=== PATIENT | female | born 1990 | race Caucasian/White ===

== ENCOUNTER 2019-10-03 09:03 | Outpatient (REF) | payer BC, SELFPAY ==
--- NOTE | 2019-10-03 08:15 | PAPFT_PTH ---
PATIENT: Alma Delia Loomis LOC: [facility] U#:[id number] AGE/SX: 29/F ROOM: RE10/03/[address]: Alma Delia Mejia : 1990 BED: DIS: 10/03/2019 SPEC #: [id number] RECD: 10/04/19 13:01 STATUS: HUMZA REQ #: [id number] LUIS: 10/03/19 08:[address]: Alma Delia Mejia DEPT: [facility] Cytology RECD BY: Marnie Villa Tissues: 1 - CX/ENDOCX FOR PAP SMEARS Procedures: PAP THIN PREP/[facility] Screening HPV DNA PROBE Comments: [id number]
== END 2019-10-03 09:23 ==
LOC: NCHCN 09:03
PROVIDERS: PCP Family Medicine; Visit Provider Family Medicine
DX: Z12.4 Encounter for screening for malignant neoplasm of cervix (principal); Z11.51 Encounter for screening for human papillomavirus (HPV)
CPT/HCPCS: 88142; 87624

== ENCOUNTER 2020-08-01 16:13 | Outpatient (REF) | payer MEDICAID, SELFPAY ==
[2020-08-01 20:46] LABS: ALT 21 U/L (14-59); AST 13 U/L (15-37); Albumin 3.9 g/dL (3.4-5.0); Alkaline Phosphatase 102 U/L (46-116); BUN 9 mg/dL (7-18); Bilirubin, Total 0.2 mg/dL (0.2-1.0); CREATININE 0.8 mg/dL (0.55-1.02); Calcium 9.5 mg/dL (8.5-10.1); Calculated LDL 109 mg/dL (<100); Chloride 101 mmol/L (98-107); Cholesterol 196 mg/dL (<200); Glucose 88 mg/dL (74-106); HDL Cholesterol 68 mg/dL (40-60); Potassium 4.2 mmol/L (3.5-5.1); Sodium 134 mmol/L (136-145); Total Protein 7.6 g/dL (6.4-8.2); Triglyceride 97 mg/dL (<150)
== END 2020-08-01 16:14 | disposition home or self-care (01) ==
LOC: NCHCN 16:13
PROVIDERS: PCP Family Medicine; Visit Provider Registered Nurse
DX: Z13.220 Encounter for screening for lipoid disorders (principal); Z13.228 Encounter for screening for other metabolic disorders; Z00.00 Encounter for general adult medical examination without abnormal findings
CPT/HCPCS: 80053; 80061

== ENCOUNTER 2021-10-02 18:27 | Outpatient (REF) | payer MEDICAID, SELFPAY ==
[2021-10-04 01:52] LABS: COVID-19 RT-PCR UVMMC Result Negative (Negative)
== END 2021-10-02 18:28 | disposition home or self-care (01) ==
LOC: NCHCN 18:27
PROVIDERS: PCP Family Medicine; Visit Provider Family Medicine
DX: Z20.822 Contact with and (suspected) exposure to COVID-19 (principal); J06.9 Acute upper respiratory infection, unspecified
CPT/HCPCS: U0003

== ENCOUNTER 2024-01-05 20:03 | Outpatient (REF) | payer SELFPAY ==
--- OUTSIDE RECORDS SUMMARY | 2024-01-05 20:08 | XMS_ITS | Encounter Summary ---
Author Organization [facility] Address [address] [place] [address] Care Team Providers Care Junior Network Administrator Name Role Phone Alma Delia Mejia MD Primary Care Provider [phone] Reason for Referral * Consult (Urgent) - Authorization Not Required Specialty Diagnoses / Procedures Referred By Trang rizzo Referred To Contact Orthopedic Surgery Diagnoses Dislocation of left patella, initial encounter Jaspreet Rosen MD [address] [place] [address] Phone: tel: fax: [facility] [address], [address] [place] [address] Phone: tel: fax: Referral ID Status Reason Start Date Expiration Date Visits Requested Visits Authorized [id number] Authorization Not Required Specialty Services Required 4 1 1 Question Answer Reason for Request: patellar dislocation Reason for Visit * Reason Comments Knee Pain Brought in by EMS wi th L knee possible dislocation. Happened while turning in upright position. 100 mcg fentanyl en route. Hx knee surgeries. Encounter Details Date Type Department Care Team (Late st Contact Info) Description 08/02/2023 15:48 EDT - 08/02/2023 18:55 EDT Emergency [facility] Emergency Department [address] [place], [place] [id number] Jaspreet Rosen MD [address] [place] [address] [phone] Dislocation of left patella, initial encounter (Primary Dx) Discharge Disposition: Home or Self Care Social History Tobacco Use Types Packs/Day Years Used Date Smoking Tobacco: Never Smokeless Tobacco: Never Tobacco Cessation:Counseling Given: Not Answered Alcohol Use Standard Drinks/Week Comments Not Currently 0 (1 standard drink = 0.6 oz pur e alcohol) Interpersonal Safety Answer Date Record ed Physically Hurt Never 09/16/2019 Verbally Threaten Not on file 09/16/2019 Comments No Sex and Gender Information Value Date Recorded Sex Assigned at Not on file Legal Sex Female 18:37 EST Gender Identity Female 01/05/2019 9:42 EST Sexual Orientation Not on file documented as of this encounter Last Filed Vital Signs Vital Sign Reading Time Taken Comments Blood Pressure 149/96 08/02/2023 1841 EDT Pulse - - Temperature 36.5 ??C (97.7 ??F) 08/02/2023 1600 EDT Respiratory Rate 14 08/02/2023 1841 EDT Oxygen Saturation 100% 08/02/2023 1841 EDT Inhaled Oxygen Concentration - - Weight - - Height - - Body Mass Index - - documented in this encounter Discharge Instructions * Discharge Instructions* Jaspreet Rosen MD - 08/02/2023 18:17 EDT [facility] Emergency Department Discharge Instructions Diagnosis: Knee Dislocation Instructions / expected course of illness: You are at risk for recurrent dislocation and I would recommend immobilizing the knee for the next couple of days until you follow-up with orthopedic surgery. You can take the brace off to shower and bathe I would ice the knee through the splint for 20 minutes at a time. For pain you can take: Ibuprofen (also known as advil or motrin) 400-600mg Acetaminophen (known as Tylenol) 650mg You can alternate these every 3 hours or take them together every 6 hours. Follow up: With your primary care provider as well as orthopedic surgery. I have placed a referral to orthopedics and they should call you to schedule a follow- up appointment Return Precautions: If you have significant worsening of your symptoms especially significant uncontrolled pain, or other symptoms that are particularly concerning to you please return to the emergency room for reevaluation. * Attachments The following attachments cannot be sent through Care Everywhere. * Kneecap Dislocation (Hebrew) documented in this encounter Medications at Time of Discharge albuterol sulfate 90 mcg/actuation aero powdr breath act w/sensor Cholecalciferol, Vitamin D3, 25 mcg (1,000 unit) capsule citalopram (CELEXA) 40 mg tablet Take 1 Tab by mouth daily. 30 Tab 1 12/24/2019 gabapentin (NEURONTIN) 300 mg capsule TAKE 1 CAPSULE BY MOUTH THREE TIMES DAILY 90 Cap 10/01/2019 ibuprofen (MOTRIN) 200 mg tablet Take 2 Tablets by mouth as needed. lamoTRIgine (LAMICTAL) 100 mg tablet 1 orally in the afternoon lamoTRIgine (LAMICTAL) 200 mg tablet TAKE 1 TABLET BY MOUTH EVERY DAY 30 Tab 1 09/17/2019 MEDICAL MARIJUANA minimal effective amount inhaled every 2 hours oxybutynin (DITROPAN-XL) 10 mg CR tablet Take 1 Tablet by mouth daily. 07/08/2020 QUEtiapine (SEROQUEL) 25 mg tablet 1 tab(s) orally at night as needed TRI-SPRINTEC, 28, 0.18/0.215/0.25 mg-35 mcg (28) tablet Take 1 Tablet by mouth daily. 07/02/2020 documented as of this encounter Discharge Disposition Disposition Code Departure Means Destination Comment s Home or Self Longterm documented in this encounter Progress Notes * Brea Levy, RT - 08/02/2023 1707 EDT Respiratory Conscious sedation The intubation box was made available at the bedside. The manual resuscitator with appropriate sizemask was hooked up to O2 and available for use. Supplemental O2 via O2 Device: None, , , was provided. SpO2 was noted to be pre 98, during 97 and post 98 procedure. EtCO2 was monitored during procedure. Procedure went well and pt is alert and oriented. BREA LEVY, RT 08/02/23 BREA LEVY, RT 08/02/23 documented in this encounter ED Notes * Roxy Álvarez RN - 08/02/2023 1854 EDT Pt able to weight bear on affected extremity to transfer from bed to wheelchair. Tolerating well. Brace in place. * Jaspreet Rosen MD - 08/02/2023 1548 EDTAssociated Order(s): Joint Disl - LE; Sedation Emergency Department Visit Medical Decision Making Imaging (independent interpretation) of the X-ray: On my interpretation postreduction x-ray shows adequate reduction Medical Decision Making 33-year-old female presents for evaluation of what seems to be a patellar dislocation on initial arrival. Complaining of significant ongoing pain. Milligram hydromorphone ordered as well as ketorolacand Tylenol. Given failed attempted reduction in the field as well as previous surgical history will at obtain x-rays before any further attempts at reduction. 3:59 PM Update: X-ray confirming lateral patellar dislocation. Attempted reduction after milligram of hydromorphone was unsuccessful. Procedural sedation was performed as detailed below with good reduction clinically. Post reduction x-rays read as unsuccessful and so case was discussed with orthopedics who will follow-up as an outpatient. Personally, I feel quite strongly that there is adequate reduction of the patella. She remains neurovascularly intact. She feels significantly improved. She will be discharged with a knee immobilizer Problems Addressed: Dislocation of left patella, initial encounter: complicated acute illness or injury Amount and/or Complexity of Data Reviewed Radiology: ordered. Risk Prescription drug management. Final diagnoses: Dislocation of left patella, initial encounter Disposition: Discharged Chief complaint: Patellar dislocation HPI Alma Delia Loomis is a 33 y.o. female with history of previous knee surgeries with Dr. Sumner on the left who presents to the ED for knee pain. Was twisting while standing up and felt her knee pop and give out. Lowered herself to the ground. EMS was called and noted a presumed patellar dislocation. They gave 100 mcg of fentanyl and attemptedreduction but were unsuccessful. Here in the emergency department patient continues to note significant pain in the left knee. No numbness or tingling in the foot or ankle. Does not believe she has ever had a patellar dislocation before. No other injuries Patient's pertinent PMH, FH, SH were reviewed and edited as necessary. Nursing notes reviewed. A medical screening exam was performed. Physical Exam BP (!) 149/96 Temp 36.5 ??C (97.7 ??F) (Oral) Resp 14 SpO2 100% Physical Exam Vitals and nursing note reviewed. Constitutional: General: She is not in acute distress. Appearance: She is well-developed. HENT: Head: Normocephalic and atraumatic. Neck: Trachea: No tracheal deviation. Cardiovascular: Rate and Rhythm: Normal rate. Pulmonary: Effort: Pulmonary effort is normal. No respiratory distress. Abdominal: General: There is no distension. Musculoskeletal: General: Normal range of motion. Cervical back: Normal range of motion. Comments: Visible and palpable dislocation of the patella laterally. No significant overlying laceration or abrasion. No erythema. Skin: General: Skin is warm and dry. Findings: No rash. Neurological: Mental Status: She is alert and oriented to person, place, and time. Motor: No abnormal muscle tone. Procedures Joint Disl - LE Performed by: Jaspreet Rosen MD Authorized by: Jaspreet Rosen MD Consent: Consent obtained: Verbal Consent given by: Patient Risks discussed: Fracture, nerve damage, restricted joint movement, irreducible dislocation, recurrent dislocation and vascular damage Alternatives discussed: No treatment, delayed treatment, alternative treatment, referral and immobilization [place] protocol: Procedure explained and questions answered to patient or proxy's satisfaction: yes Relevant documents present and verified: yes Test results available: yes Imaging studies available: yes Required blood products, implants, devices, and special equipment available: yes Site/side marked: yes Immediately prior to procedure, a time out was called: yes Patient identity confirmed: Verbally with patient Location: Location: Knee Knee injury location: L knee Knee dislocation type: patellar Pre-procedure details: Distal perfusion: normal Range of motion: reduced Sedation: Sedation type: Moderate sedation Anesthesia: Anesthesia method: None Procedure details: Manipulation performed: yes Knee reduction method: Direct traction Reduction successful: yes Reduction confirmed with imaging: yes Immobilization: Brace Post-procedure details: Neurological function: normal Distal perfusion: normal Range of motion: improved Procedure completion: Tolerated well, no immediate complications Sedation Performed by: Jaspreet Rosen MD Authorized by: Jaspreet Rosen MD Consent: Consent obtained: Written Consent given by: Patient Risks discussed: Allergic reaction, prolonged hypoxia resulting in organ damage, prolonged sedationnecessitating reversal, inadequate sedation, nausea, vomiting and respiratory compromise necessitating ventilatory assistance and intubation Alternatives discussed: Analgesia without sedation [place] protocol: Procedure explained and questions answered to patient or proxy's satisfaction: yes Relevant documents present and verified: yes Imaging studies available: yes Immediately prior to procedure a time out was called: yes Patient identity confirmation method: Verbally with patient Indications: Procedure performed: Dislocation reduction Procedure necessitating sedation performed by: Different physician Intended level of sedation: Deep Deep Sedation: This sedation was complicated by an emergent condition for which a delay in treatment would lead to a significant increase in threat to life or limb. Pre-sedation assessment: ASA classification: class 1 - normal, healthy patient Neck mobility: normal Mouth openin or more finger widths Mallampati score: I - soft palate, uvula, fauces, pillars visible Pre-sedation assessments completed and reviewed: airway patency, anesthesia/sedation history, cardiovascular function, hydration status, mental status, nausea/vomiting, pain level, respiratory function and temperature History of difficult intubation: no Immediate pre-procedure details: Reviewed: vital signs, relevant labs/tests and NPO status Verified: bag valve mask available, emergency equipment available, intubation equipment available, oxygen available and suction available Procedure details (see MAR for exact dosages): Preoxygenation: Nasal cannula Sedation: Propofol Analgesia: Fentanyl Intra-procedure monitoring: Blood pressure monitoring, continuous capnometry, case monitor, continuous pulse oximetry, frequent LOC assessments and frequent vital sign checks Intra-procedure events: none Intra-procedure management: Airway repositioning Post-procedure details: Attendance: Constant attendance by certified staff until patient recovered Recovery: Patient returned to pre-procedure baseline Estimated blood loss (see I/O flowsheets): no Post-sedation assessments completed and reviewed: cardiovascular function, mental status, nausea/vomiting and respiratory function Patient tolerance: Tolerated well, no immediate complications documented in this encounter Plan of Treatment Scheduled Referrals Name Type Priority Associated Diagnoses Order Schedule AMB CONS/FOLLOW [place]ED[place] [facility] [place] Urgent Dislocation of left patella, initial encounter Expected: 08/04/2023 (Approximate), Expires: 08/01/2024 documented as of this encounter Procedures Procedure Name Priority Date/Time Associated Diagnosis Comments XR KNEE LEFT 4 OR MORE VIEWS STAT 08/02/2023 17:05 EDT XR KNEE LEFT 1-2 VIEWS STAT 08/02/2023 16:12 EDT ED ORTHOPAEDIC INJURY TREATMENT - LOWER EXTREMITY Routine 08/02/2023 15:48 EDT ED ORTHOPAEDIC INJURY TREATMENT - LOWER EXTREMITY Routine 08/02/2023 15:48 EDT ED SEDATION PROCEDURE Routine 08/02/2023 15:48 EDT documented in this encounter Results * XR KNEE LEFT 4 OR MORE VIEWS (08/02/2023 17:05 EDT) Anatomical Region Laterality Modality Lower Extremities Left Computed Radio graphy 08/02/2023 16:5 5 EDT Impressions 08/02/2023 17:31 EDT Unsuccessful reduction. THIS DOCUMENT HAS BEEN ELECTRONICALLY SIGNED BY TIANA FERNANDEZ MD FOR ANY QUESTIONS OR CONCERNS REGARDING THIS REPORT PLEASE CALL [facility] AT [phone] Narrative 08/02/2023 17:31 EDT PROCEDURE INFORMATION: Exam: XR Left Knee Exam date and time: 08/02/2023 4:55 PM Age: 33 years old Clinical indication: Injury or trauma; Other: Post reduction; Dislocation; Patella or knee; Left TECHNIQUE: Imaging protocol: Radiologic exam of the left knee. Views: 4 or more views. Total images: 4 COMPARISON: CR XR KNEE LEFT 1-2 VIEWS 08/02/2023 4:02 PM FINDINGS: Bones/joints: Persistent lateral patellar subluxation/dislocation. Minimal knee effusion. No definite fracture. Soft tissues: Unremarkable. Procedure Note Tiana Fernandez MD - 08/02/2023 PROCEDURE INFORMATION: Exam: XR Left Knee Exam date and time: 08/02/2023 4:55 PM Age: 33 years old Clinical indication: Injury or trauma; Other: Post reduction; Dislocation; Patella or knee; Left TECHNIQUE: Imaging protocol: Radiologic exam of the left knee. Views: 4 or more views. Total images: 4 COMPARISON: CR XR KNEE LEFT 1-2 VIEWS 08/02/2023 4:02 PM FINDINGS: Bones/joints: Persistent lateral patellar subluxation/dislocation. Minimal knee effusion. No definite fracture. Soft tissues: Unremarkable. IMPRESSION Unsuccessful reduction. THIS DOCUMENT HAS BEEN ELECTRONICALLY SIGNED BY TIANA FERNANDEZ MD FOR ANY QUESTIONS OR CONCERNS REGARDING THIS REPORT PLEASE CALL [facility] [phone] us Jaspreet Rosen MD IMG DIAGNOSTIC IMAGING ORDERA BLES Final Result * XR KNEE LEFT 1-2 VIEWS (08/02/2023 16:12 EDT) Anatomical Region Laterality Modality Lower Extremities Left Computed Radio graphy 08/02/2023 16:0 2 EDT Impressions 08/02/2023 17:28 EDT Lateral patellar dislocation. THIS DOCUMENT HAS BEEN ELECTRONICALLY SIGNED BY TIANA FERNANDEZ MD FOR ANY QUESTIONS OR CONCERNS REGARDING THIS REPORT PLEASE CALL [facility] AT [phone] Narrative 08/02/2023 17:28 EDT PROCEDURE INFORMATION: Exam: XR Left Knee Exam date and time: 08/02/2023 4:02 PM Age: 33 years old Clinical indication: Pain; Knee; Left; Additional info: Patellar dislocation TECHNIQUE: Imaging protocol: Radiologic exam of the left knee. Views: 1 or 2 views. Total images: 2 COMPARISON: MRI KNEE LT W/O CONTRAST 07/29/2017 2:00 PM FINDINGS: Bones/joints: Lateral patellar dislocation. No fracture. No effusion. Soft tissues: Unremarkable. Procedure Note Tiana Fernandez MD - 08/02/2023 PROCEDURE INFORMATION: Exam: XR Left Knee Exam date and time: 08/02/2023 4:02 PM Age: 33 years old Clinical indication: Pain; Knee; Left; Additional info: Patellar dislocation TECHNIQUE: Imaging protocol: Radiologic exam of the left knee. Views: 1 or 2 views. Total images: 2 COMPARISON: MRI KNEE LT W/O CONTRAST 07/29/2017 2:00 PM FINDINGS: Bones/joints: Lateral patellar dislocation. No fracture. No effusion. Soft tissues: Unremarkable. IMPRESSION Lateral patellar dislocation. THIS DOCUMENT HAS BEEN ELECTRONICALLY SIGNED BY TIANA FERNANDEZ MD FOR ANY QUESTIONS OR CONCERNS REGARDING THIS REPORT PLEASE CALL [facility] [phone] us Jaspreet Rosen MD IMG DIAGNOSTIC IMAGING ORDERA BLES Final Result * Sedation (08/02/2023 15:48 EDT) Narrative [facility] EKG - 08/02/2023 15:48 EDT Jaspreet Rosen MD ? 08/02/2023 21:13 Sedation Performed by: Jaspreet Rosen MD Authorized by: Jaspreet Rosen MD ?? Consent: ??Consent obtained: ??Written ??Consent given by: ??Patient ??Risks discussed: ??Allergic reaction, prolonged hypoxia resulting in organ damage, prolonged sedation necessitating reversal, inadequate sedation, nausea, vomiting and respiratory compromise necessitating ventilatory assistance and intubation ??Alternatives discussed: ??Analgesia without sedation [place] protocol: ??Procedure explained and questions answered to patient or proxy's satisfaction: yes ?Relevant documents present and verified: yes ?Imaging studies available: yes ?Immediately prior to procedure a time out was called: yes ?Patient identity confirmation method: ??Verbally with patient Indications: ??Procedure performed: ??Dislocation reduction ??Procedure necessitating sedation performed by: ??Different physician ??Intended level of sedation: ??Deep ??Deep Sedation: This sedation was complicated by an emergent condition for which a delay in treatment would lead to a significant increase in threat to life or limb. Pre-sedation assessment: ??ASA classification: class 1 - normal, healthy patient ?Neck mobility: normal ?Mouth opening: ??3 or more finger widths ??Mallampati score: ??I - soft palate, uvula, fauces, pillars visible ??Pre-sedation assessments completed and reviewed: airway patency, anesthesia/sedation history, cardiovascular function, hydration status, mental status, nausea/vomiting, pain level, respiratory function and temperature ?History of difficult intubation: no ?? Immediate pre-procedure details: ??Reviewed: vital signs, relevant labs/tests and NPO status ?Verified: bag valve mask available, emergency equipment available, intubation equipment available, oxygen available and suction available ?? Procedure details (see MAR for exact dosages): ??Preoxygenation: ??Nasal cannula ??Sedation: ??Propofol ??Analgesia: ??Fentanyl ??Intra-procedure monitoring: ??Blood pressure monitoring, continuous capnometry, case monitor, continuous pulse oximetry, frequent LOC assessments and frequent vital sign checks ??Intra-procedure events: none ?Intra-procedure management: ??Airway repositioning Post-procedure details: ??Attendance: Constant attendance by certified staff until patient recovered ?Recovery: Patient returned to pre-procedure baseline ?Estimated blood loss (see I/O flowsheets): no ?Post-sedation assessments completed and reviewed: cardiovascular function, mental status, nausea/vomiting and respiratory function ?Patient tolerance: ??Tolerated well, no immediate complications Jaspreet Rosen MD PROCEDURE/MINOR SURGICAL ORDE MARITZA Final Result [facility] EKG * NV CLOSED TX PATELLAR DISLOCATION W/O ANESTHESIA, HC - CLOSED TX PATELLAR DISLOCATION W/O ANESTHESIA (08/02/2023 15:48 EDT) Narrative [facility] EKG - 08/02/2023 15:48 EDT Jaspreet Rosen MD ? 08/02/2023 21:13 Joint Disl - LE Performed by: Jaspreet Rosen MD Authorized by: Jaspreet Rosen MD ?? Consent: ??Consent obtained: ??Verbal ??Consent given by: ??Patient ??Risks discussed: ??Fracture, nerve damage, restricted joint movement, irreducible dislocation, recurrent dislocation and vascular damage ??Alternatives discussed: ??No treatment, delayed treatment, alternative treatment, referral and immobilization [place] protocol: ??Procedure explained and questions answered to patient or proxy's satisfaction: yes ?Relevant documents present and verified: yes ?Test results available: yes ?Imaging studies available: yes ?Required blood products, implants, devices, and special equipment available: yes ?Site/side marked: yes ?Immediately prior to procedure, a time out was called: yes ?Patient identity confirmed: ??Verbally with patient Location: ??Location: ??Knee ??Knee injury location: ??L knee ??Knee dislocation type: patellar ?? Pre-procedure details: ??Distal perfusion: normal ?Range of motion: reduced ?? Sedation: ??Sedation type: ??Moderate sedation Anesthesia: ??Anesthesia method: ??None Procedure details: ??Manipulation performed: yes ?Knee reduction method: ??Direct traction ??Reduction successful: yes ?Reduction confirmed with imaging: yes ?Immobilization: ??Brace Post-procedure details: ??Neurological function: normal ?Distal perfusion: normal ?Range of motion: improved ?Procedure completion: ??Tolerated well, no immediate complications us Jaspreet Rosen MD PROCEDURE/MINOR SURGICAL ORDE MARITZA Final Result [facility] EKG documented in this encounter Visit Diagnoses Diagnosis Dislocation of left patella, initial encounter- Primary documented in this encounter Administered Medications Inactive Administered Medications - up to 3 most recent administrations Medication Order MAR Action Action Date Dose Rate Site acetaminophen (OFIRMEV) IV solution 1,000 mg 1,000 mg, intravenous, NOW X1, 1 dose, On Tue08/02/23 at 1615, STAT Given 08/02/2023 16:23 EDT 1,000 mg HYDROmorphone (DILAUDID) injection 1 mg 1 mg, intravenous, NOW X1, 1 dose, On Tue08/02/23 at 1615, STAT Given 08/02/2023 15:58 EDT 1 mg ketOROLAC (TORADOL) injection 15 mg 15 mg, intravenous, NOW X1, 1 dose, On Tue08/02/23 at 1615, Routine Given 08/02/2023 16:23 EDT 15 mg propOFol (DIPRIVAN) 10 mg/mL injection 1 dose, Starting on Tue08/02/23 at 1637, Until Tue08/02/23 at 2055 propOFol (DIPRIVAN) injection intravenous, ONCE PRN, 1 dose, Starting on Tue08/02/23 at 1642, Until Tue08/02/23 at 1642, Routine Given 08/02/2023 16:42 EDT 30 mg propOFol (DIPRIVAN) injection intravenous, ONCE PRN, 1 dose, Starting on Tue08/02/23 at 1644, Until Tue08/02/23 at 1644, Routine Given 08/02/2023 16:44 EDT 20 mg propOFol (DIPRIVAN) injection intravenous, ONCE PRN, 1 dose, Starting on Tue08/02/23 at 1645, Until Tue08/02/23 at 1645, Routine Given 08/02/2023 16:45 EDT 20 mg propOFol (DIPRIVAN) injection intravenous, ONCE PRN, 1 dose, Starting on Tue08/02/23 at 1646, Until Tue08/02/23 at 1646, Routine Given 08/02/2023 16:46 EDT 30 mg documented in this encounter Active and Recently Administered Medications Times are shown in EDT. Scheduled Medication Order 07/31/2023 08/01/2023 08/02/2023 acetaminophen (OFIRMEV) IV solution 1,000 mg (COMPLETED) 1,000 mg, intravenous, NOW X1, 1 dose, On Tue08/02/23 at 1615, STAT 1623 (Given - Provid er: Roxy Álvarez RN)1718 (Completed - Provider: Roxy Álvarez RN) HYDROmorphone (DILAUDID) injection 1 mg (COMPLETED) 1 mg, intravenous, NOW X1, 1 dose, On Tue08/02/23 at 1615, STAT 1558 (Given - Provid er: Roxy Álvarez RN) ketOROLAC (TORADOL) injection 15 mg (COMPLETED) 15 mg, intravenous, NOW X1, 1 dose, On Tue08/02/23 at 1615, Routine 1623 (Given - Provid er: Roxy Álvarez RN) PRN Medication Order 07/31/2023 08/01/2023 08/02/2023 propOFol (DIPRIVAN) injection (COMPLETED) intravenous, ONCE PRN, 1 dose, Starting on Tue08/02/23 at 1642, Until Tue08/02/23 at 1642, Routine 1642 (Given - Provid er: Jaspreet Rosen MD)1718 (Canceled Entry - Provider: Roxy Álvarez RN - Comment: Automatically documented as Canceled Entry when linked to one-step medication.) propOFol (DIPRIVAN) injection (COMPLETED) intravenous, ONCE PRN, 1 dose, Starting on e 08/02/23 at 1644, Until 08/02/23 at 1644, Routine 1644 (Given - Provid er: Jaspreet Rosen MD) propOFol (DIPRIVAN) injection (COMPLETED) intravenous, ONCE PRN, 1 dose, Starting on e 08/02/23 at 1645, Until 08/02/23 at 1645, Routine 1645 (Given - Provid er: Jaspreet Rosen MD) propOFol (DIPRIVAN) injection (COMPLETED) intravenous, ONCE PRN, 1 dose, Starting on e 08/02/23 at 1646, Until Tue08/02/23 at 1646, Routine 1646 (Given - Provid er: Jaspreet Rosen MD) No Frequency Medication Order 07/31/2023 08/01/2023 08/02/2023 propOFol (DIPRIVAN) 10 mg/mL injection 1 dose, Starting on Tue08/02/23 at 1637, Until Tue08/02/23 at 2055 documented in this encounter Orders Nursing Count Last Ordered Date First Orde red Date CALL PHYSICIAN SPECIALTY CONSULT 1 08/02/19 24 PAGE RESPIRATORY THERAPY 1 08/02/2023 documented in this encounter Care Teams Junior Network Administrator Relationship Specialty Start Date End Date Alma Delia Mejia MD [address] [place] [address] PCP - General 07/09/10 documented as of this encounter
--- OUTSIDE RECORDS SUMMARY | 2024-01-05 20:08 | XMS_ITS | Referral Summary ---
Author Organization [facility] Address [address] [place] [address] Care Team Providers Care Retail Clerk Name Role Phone Alma Delia Mejia MD Primary Care Provider [phone] Encounters Date Type Department Care Team Description 12/24/2023 15:30 EST Walk-In [facility] [address] [place] [address] Lizzy Darden PA-C Dysuria (Primary Dx) 11/03/2023 Documentation Visit [facility] [address] [place], [place] [phone] Trent Dukes PA-C 11/03/2023 15:00 EDT Office Visit [facility] [address] [place], [place] [phone] Trent Dukes PA-C Left knee pain, unspecified chronicity (Primary Dx); Closed patellar dislocation, left, initial encounter from Last 3 Months Allergies Active Allergy Reactions Criticality Noted Date Comments Clonazepam 10/04/2018 Other reaction(s): severe aggression Other - See Comments 08/24/2020 Anything in the benzo category per pt Oxycodone-Acetaminophen 10/04/2018 Other reaction(s): severe aggression/agitation Medications ibuprofen (MOTRIN) 200 mg tablet Take 2 Tablets by mouth as needed. Active lamoTRIgine (LAMICTAL) 100 mg tablet 1 orally in the afternoon Active lamoTRIgine (LAMICTAL) 200 mg tablet TAKE 1 TABLET BY MOUTH EVERY DAY 30 Tab 1 0 Active gabapentin (NEURONTIN) 300 mg capsule TAKE 1 CAPSULE BY MOUTH THREE TIMES DAILY 90 Cap 0 Active Additional Information Patient not taking.Reported on 08/02/2023 citalopram (CELEXA) 40 mg tablet Take 1 Tab by mouth daily. 30 Tab 1 0 Active MEDICAL MARIJUANA minimal effective amount inhaled every 2 hours Active albuterol sulfate 90 mcg/actuation aero powdr breath act w/sensor Active TRI-SPRINTEC, 28, 0.18/0.215/0.25 mg-35 mcg (28) tablet Take 1 Tablet by mouth daily. 1 Active Cholecalciferol , Vitamin D3, 25 mcg (1,000 unit) capsule Active oxybutynin (DITROPAN-XL) 10 mg CR tablet Take 1 Tablet by mouth daily. 1 Active QUEtiapine (SEROQUEL) 25 mg tablet 1 tab(s) orally at night as needed Active sulfamethoxazol e-trimethoprim (BACTRIM/CO-TRI MOXAZOLE DS) 800-160 mg per tabletIndicatio ns:Dysuria Take 1 Tablet by mouth 2 times daily for 7 days. 14 Tablet 4 12/31/19 24 Active Problems Patient Care Coordination No te Formatting of this note migh t be different from the original. Confirmed ACO STATUS 2020. TCN# [id number]. Brittany Oliveira 09/03/2020 18:17 Problem Noted Date Diagnosed Date Bipolar II disorder ([facility]) 01/08/2019 Major depression 01/08/2019 PTSD (post-traumatic stress disorder) 01/08/2019 Social History Tobacco Use Types Packs/Day Years [...] 9:42 EST Sexual Orientation Not on file Last Filed Vital Signs Vital Sign Reading Time Taken Comments Blood Pressure 120/86 12/24/2023 1543 EST Pulse 90 12/24/2023 1543 EST Temperature 37.1 ??C (98.8 ??F) 12/24/2023 1543 EST Respiratory Rate 18 12/24/2023 1543 EST Oxygen Saturation 98% 12/24/2023 1543 EST Inhaled Oxygen Concentration - - Weight - - Height - - Body Mass Index - - Plan of Treatment Not on file Procedures Procedure Name Priority Date/Time Associated Diagnosis Comments BACTERIAL CULTURE, URINE Routine 12/24/2023 16:59 EST Dysuria POCT URINE DIPSTICK, VISUAL READ STAT 12/24/2023 Dysuria from Last 3 Months Results * (ABNORMAL) BACTERIAL CULTURE, URINE (12/24/2023 16:59 EST) Organism ID Greater than 100,000 CFU/ml Escherichia coli(A) VITEK SUSCEPTIBILITY 12/26/2023 7:46 EST [facility] Comment: Urine URINE SPECIMEN OBTAINED BY CLEAN CATCH PROCEDURE / Unknown Urine Collect / Unknown 12/24/2023 16:59 EST 12/24/2023 17:00 EST Narrative Organism Antibiotic Method Susceptibility Escherichia coli Ampicillin VITEK SUSCEPTIBILITY <=2 ug/mL: Susceptible Escherichia coli Ampicillin Sulbactam VITEK SUSCEPTIBI LITY <=2 ug/mL: Susceptible Escherichia coli Cefazolin VITEK SUSCEPTIBILITY 2 ug/mL: Susceptible Escherichia coli Gentamicin VITEK SUSCEPTIBILITY <=1 ug/mL: Susceptible Escherichia coli Nitrofurantoin VITEK SUSCEPTIBILITY <=16 ug/mL: Susceptible Escherichia coli Trimethoprim-Sulfame thox azole VITEK SUSCEPTIBILITY <=20 ug/mL: Susceptible us Lizzy Darden PA-C MICROBIOLOGY - GENERAL ORDERABLES Final Result [facility] [address] [place] [address] * (ABNORMAL) POCT URINE DIPSTICK, VISUAL READ (12/24/2023) Color, UA Yellow Yellow, Colorless [facility] POINT OF CARE Clarity, UA Cloudy(A) Clear [facility] PO INT OF CARE Glucose, UA Negative Negative mg/dL [facility] POINT OF CARE Bilirubin, UA Negative Negative [facility] POINT [facility] CARE Ketones, UA Negative Negative mg/dL [facility] POINT OF CARE Spec Grav, UA >=1.030(A) 1.001 - 1.030 U [facility] POINT OF CARE Blood, UA Negative Negative [facility] POIN T OF CARE pH, UA 6.5 5.0 - 8.0 [facility] POIN T OF CARE Protein, UA Negative Negative mg/dL [facility] POINT OF CARE Urobilinogen, UA 0.2 0.2 - 1.0 E.U./dL [facility] POINT OF CARE Nitrite, UA Positive(A) Negative [facility] POINT OF CARE Leuk Esterase Negative Negative [facility] POINT OF CARE Comment [facility] POIN T OF CARE Urine URINE SPECIMEN OBTAINED BY CLEAN CATCH PROCEDURE / Unknown 12/24/2023 Lizzy Darden PA-C POINT OF CARE TEST ORD ERABLES Final Result [facility] POINT OF CARE from Last 3 Months Insurance [facility] Care Teams Retail Clerk Relationship Specialty Start Date End Date Alma Delia Mejia MD [address] [place] [address] PCP - General 07/09/10
--- OUTSIDE RECORDS SUMMARY | 2024-01-05 20:08 | XMS_ITS | Clinical Summary ---
Author Organization [facility] Address [address] [place] [address] Care Team Providers Care Marine Technician Name Role Phone Alma Delia Mejia MD Primary Care Provider [phone] Allergies Active Allergy Reactions Criticality Noted Date [...] the original. Confirmed ACO STATUS 2020. TCN# [id number]. Brittany Oliveira 09/03/2020 18:17 Problem Noted Date Diagnosed Date Bipolar II disorder ([facility]) 01/08/2019 Major depression 01/08/2019 PTSD (post-traumatic stress disorder) 01/08/2019 Encounters Date Type Department Care Team Description 12/24/2023 15:30 EST Walk-In [facility] [address] [place] [address] Lizzy Darden PA-C Dysuria (Primary Dx) 11/03/2023 15:00 EDT Office Visit [facility] [address] [place], [place] [phone] Trent Dukes PA-C Left knee pain, unspecified chronicity (Primary Dx); Closed patellar dislocation, left, initial encounter 11/03/2023 Documentation Visit [facility] [address] [place], [place] [phone] Trent Dukes PA-C from Last 3 Months Family History Medical History Relation Comments Breast Cancer Paternal Aunt Breast Cancer Paternal Grandmother Relation Status Comments Paternal Aunt Paternal Grandmother Social History Tobacco Use Types Packs/Day Years [...] 9:42 EST Sexual Orientation Not on file Obstetrics History Para Term AB IAB SAB Ectopic Multiple Livin g Live Births 0 Last Filed Vital Signs Vital Sign Reading Time Taken Comments Blood Pressure 120/86 12/24/2023 1543 EST Pulse 90 12/24/2023 1543 EST Temperature 37.1 ??C (98.8 ??F) 12/24/2023 1543 EST Respiratory Rate 18 12/24/2023 1543 EST Oxygen Saturation 98% 12/24/2023 1543 EST Inhaled Oxygen Concentration - - Weight - - Height - - Body Mass Index - - Plan of Treatment Health Maintenance Due Date Last Done Comments Hepatitis C Screen 1988 Hepatitis B Vaccine (1 of 3 - 19+ 3-dose series) 02/09 COVID-19 Vaccine ( season) 2023 Procedures Procedure Name Priority Date/Time Associated Diagnosis Comments BACTERIAL CULTURE, URINE Routine 12/24/2023 16:59 EST Dysuria POCT URINE DIPSTICK, VISUAL READ STAT 12/24/2023 Dysuria from Last 3 Months Results * (ABNORMAL) BACTERIAL CULTURE, URINE (12/24/2023 16:59 EST) Organism ID Greater than 100,000 CFU/ml Escherichia coli(A) VITEK SUSCEPTIBILITY 12/26/2023 7:46 EST [facility] Comment: Urine URINE [...] thox azole VITEK SUSCEPTIBILITY <=20 ug/mL: Susceptible Lizzy Darden PA-C MICROBIOLOGY - GENERAL ORDERABLES Final Result [facility] [address] [place] [address] * (ABNORMAL) POCT URINE DIPSTICK, VISUAL READ (12/24/2023) Color, UA Yellow Yellow, Colorless [facility] POINT OF CARE Clarity, UA Cloudy(A) Clear [facility] PO INT OF CARE Glucose, UA Negative Negative mg/dL [facility] POINT OF CARE Bilirubin, UA Negative Negative [facility] POINT OF CARE Ketones, UA Negative Negative mg/dL [facility] POINT OF CARE Spec Grav, UA >=1.030(A) 1.001 - 1.030 U [facility] POINT OF CARE Blood, UA [...] OF CARE from Last 3 Months Insurance [facility] Care Teams Marine Technician Relationship Specialty Start Date End Date Alma Delia Mejia MD [address] [place] [phone] PCP - General 07/09/10
--- OUTSIDE RECORDS SUMMARY | 2024-01-05 20:08 | XMS_ITS | Encounter Summary ---
Author Organization [facility] Address [address] [place] [address] Care Team Providers Care Medical Assistant Float Name Role Phone Alma Delia Mejia MD Primary Care Provider [phone] Reason for Visit * Reason Comments Back Pain Encounter Details Date Type Department Care Team (Late st Contact Info) Description 12/24/2023 15:30 EST [facility] [address] [place] [phone] Lizzy Darden PA-C [address] [place], [place] [phone] Dysuria (Primary Dx) Social History Tobacco Use Types Packs/Day Years Used Date Smoking Tobacco: Never Smokeless Tobacco: Never Alcohol Use Standard Drinks/Week Comments Not Currently [...] Index - - documented in this encounter Patient Instructions * Patient Instructions* Lizzy Darden PA-C - 12/24/2023 15:30 EST Heating pads over the mid and low back, ibuprofen alternating with Tylenol as needed for discomfort. Increase fluids, take the full course of Bactrim twice daily and our office will call if we need to change the antibiotic regimen if the culture indicates that. Check your [employer] portal for resultsotherwise. Seek further evaluation if you develop fever, increasing pain or abdominal pain develops. documented in this encounter Ordered Prescriptions Prescription Sig Dispense Quantity Refills Last Filled Start Date End Date sulfamethoxazole-t rimethoprim (BACTRIM/CO-TRIMOX AZOLE DS) 800-160 mg per tabletIndications: Dysuria Take 1 Tablet by mouth 2 times daily for 7 days. 14 Tablet 12/24/2023 12/31/2023 documented in this encounter Progress Notes * Tanya Tate RN - 12/24/2023 1530 EST CC/HPI: Pt has had back pain for past couple of days like she had when she had a kidney infection. Hx of overactive bladder-has urgency, frequency etc all the time. No known injury. Covid Screening: In the last 72 hours, has the patient had: New or unusual cough, shortness of breath, new nasal congestion, sore throat, fever, chills, body aches, or new loss of taste or smell without a reasonable alternative diagnosis*? (If yes, assign to [facility])- NO In the past 10 days, has the patient had a positive Covid test OR a confirmed close Covid exposure (<6ft for > 15mins in 24hr period)? (if yes, assign to [facility], regardless of vaccination status)-NO *may be determined by RN or in discussion with available provider (FUEL CELL SYSTEMS ENGINEER's and CCA's can defer to Charge Nurse to complete triage when appropriate) PCP: Alma Delia Mejia * Lizzy Darden PA-C - 12/24/2023 1530 EST [facility] Care: Chief Complaint(s): Chief Complaint Patient presents with Back Pain Assessment & Plan: 1. Dysuria POCT URINE DIPSTICK, VISUAL READ POCT TEST, VISUAL READ BACTERIAL CULTURE, URINE sulfamethoxazole-trimethoprim (BACTRIM/CO-TRIMOXAZOLE DS) 800-160 mg per tablet New Prescriptions SULFAMETHOXAZOLE-TRIMETHOPRIM (BACTRIM/CO-TRIMOXAZOLE DS) 800-160 MG PER TABLET Take 1 Tablet by mouth 2 times daily for 7 days. Assessment & Plan Suspected Urinary Tract Infection (UTI) Presented with back pain, positive nitrites on urine dipstick. History of UTI progressing to pyelonephritis. No fever or systemic signs of infection. -Start Bactrim DS twice daily for 7 days to cover for pyelonephritis. -Perform urine culture to confirm diagnosis and antibiotic sensitivity. -Advise patient to increase fluid intake. Concurrent back pain, possibly musculoskeletal in nature. -Advise use of heating pads and fcer-oyh-eiupxyi analgesics (ibuprofen and Tylenol) as needed for pain relief. -Follow-up as needed based on urine culture results and patient's symptom progression. ED precautions reviewed. HPI: History of Present Illness The patient, with a history of overactive bladder managed with oxybutynin, presents with back pain and a suspected urinary tract infection (UTI). She reports a previous UTI that progressed to a kidney infection, presenting with low backache. Currently, the back pain is the primary symptom, with no a ssociated dysuria or urinary frequency. The patient denies fever and systemic symptoms. She denies any possibility of , with her last menstrual period ending two weeks ago and currently on the second week of a new control packet. The patient denies any vaginal symptoms ordischarge. The patient's back pain is constant and does not worsen with activity. However, tenderness was alsonoted over the kidney area, raising suspicion for a kidney infection. ROS: ROS Objective: Vitals and nursing notes reviewed Examination: BP 120/86 (BP Cuff Location: Right arm, BP Patient Position: Sitting, BP Cuff Sizes: Adult, long) Pulse 90 Temp 37.1 ??C (98.8 ??F) (Oral) Resp 18 SpO2 98% Physical Exam Constitutional: General: She is not in acute distress. Appearance: She is not ill-appearing, toxic-appearing or diaphoretic. Cardiovascular: Rate and Rhythm: Normal rate and regular rhythm. Heart sounds: Normal heart sounds. Abdominal: General: Abdomen is flat. Bowel sounds are normal. There is no distension. Palpations: Abdomen is soft. Tenderness: There is no abdominal tenderness. There is right CVA tenderness. There is no left CVA tenderness, guarding or rebound. Musculoskeletal: Comments: Right midline thoracic back pain and right paraspinal back pain, negative straight leg raise bilaterally, normal strength and sensation to light touch in bilateral lower extremities. Skin: General: Skin is warm and dry. Neurological: Mental Status: She is alert and oriented to person, place, and time. Psychiatric: Behavior: Behavior normal. Physical Exam ABDOMEN: Tenderness upon palpation on the right side. MUSCULOSKELETAL: Pain elicited upon percussion of the spine. No exacerbation of pain upon leg raisetest. Data reviewed with patient (current and past results): problem list/past medical history, current medications, and allergies Results LABS Urine dipstick: Nitrites positive Results for orders placed or performed in visit on 12/24/23 POCT URINE DIPSTICK, VISUAL READ Result Value Ref Range Color, UA Yellow Yellow, Colorless Clarity, UA Cloudy (A) Clear Glucose, UA Negative Negative mg/dL Bilirubin, UA Negative Negative Ketones, UA Negative Negative mg/dL Spec Grav, UA >=1.030 (A) 1.001 - 1.030 Blood, UA Negative Negative pH, UA 6.5 5.0 - 8.0 Protein, UA Negative Negative mg/dL Urobilinogen, UA 0.2 0.2 - 1.0 E.U./dL Nitrite, UA Positive (A) Negative Leuk Esterase Negative Negative Comment Negative urine HCG I discussed with Alma Delia Loomis the use of this audio recording tool to create a clinical note. I explained the benefits of the technology, such as time savings and a better patient experience. I explained that the recording will be confidential and converted into a written note which I will review and edit as needed before it is saved in the medical record. The patient expressed an understanding of the use of this technology for clinical documentation and agreed to allow its use for this encounter. An appropriate medical screening examination was performed. The patient was assessed prior to discharge and deemed stable for discharge home This note may be in part documented using voice dictation software. Please forgive any errors or omissions that may result from use of dictation. documented in this encounter Miscellaneous Notes * Result Encounter Note - Mimi Wells PA-C - 12/24/2023 1530 EST No change in tx documented in this encounter Plan of Treatment Scheduled Orders Name Type Priority Associated Diagnoses Orde r Schedule POCT TEST, VISUAL READ Point of Care Testing Routine Dysuria Ordered: 12/24/2023 documented as of this encounter Procedures Procedure Name Priority Date/Time Associated Diagnosis Comments BACTERIAL CULTURE, URINE Routine 12/24/2023 16:59 EST Dysuria POCT URINE DIPSTICK, VISUAL READ STAT 12/24/2023 Dysuria documented in this encounter Results * (ABNORMAL) BACTERIAL CULTURE, URINE (12/24/2023 16:59 EST) Organism ID Greater than 100,000 CFU/ml Escherichia coli(A) VITEK SUSCEPTIBILITY 12/26/2023 7:46 EST [facility] Comment: Urine URINE SPECIMEN OBTAINED [...] PA-C MICROBIOLOGY - GENERAL ORDERABLES Final Result [facility] [address] [place] [address] * (ABNORMAL) POCT URINE DIPSTICK, VISUAL READ (12/24/2023) Color, UA Yellow Yellow, Colorless [facility] POINT OF CARE Clarity, UA Cloudy(A) Clear [facility] PO INT OF CARE Glucose, UA Negative Negative mg/dL [facility] Bilirubin, UA Negative Negative [facility] POINT OF CARE Ketones, UA Negative Negative mg/dL [facility] POINT OF CARE Spec Grav, UA >=1.030(A) 1.001 - 1.030 U [facility] POINT OF CARE Blood, UA Negative Negative [facility] POIN T OF CARE pH, UA 6.5 5.0 - 8.0 [facility] POIN T OF CARE Protein, UA Negative Negative mg/dL [facility] Urobilinogen, UA 0.2 0.2 - 1.0 E.U./dL [facility] Nitrite, UA Positive(A) Negative [facility] POINT OF CARE Leuk Esterase Negative Negative [facility] POINT OF CARE Comment [facility] POIN T OF CARE Urine URINE SPECIMEN OBTAINED BY CLEAN CATCH PROCEDURE / Unknown 12/24/2023 Lizzy Darden PA-C POINT OF CARE TEST ORD ERABLES Final Result [facility] documented in this encounter Visit Diagnoses Diagnosis Dysuria- Primary documented in this encounter Care Teams Medical Assistant Float Relationship Specialty Start Date End Date Alma Delia Mejia MD [address] [place] [phone] PCP - General 07/09/10 documented as of this encounter
--- OUTSIDE RECORDS SUMMARY | 2024-01-05 20:08 | XMS_ITS | Encounter Summary ---
Author Organization [facility] Address [address] [place] [address] Care Team Providers Care Rubbing Bed Operator Name Role Phone Alma Delia Mejia MD Primary Care Provider [phone] Encounter Details Date Type Department Care Team (Late st Contact Info) Description 11/03/2023 Documentation Visit [facility] [address], [address] [place] [address] Trent Dukes PA-C [address] [facility] [address] [place] [address] Social History Tobacco Use Types Packs/Day Years [...] on file documented as of this encounter Plan of Treatment Not on file documented as of this encounter Visit Diagnoses Not on filedocumented in this encounter Care Teams Rubbing Bed Operator Relationship Specialty Start Date End Date Alma Delia Mejia MD [address] [place] [address] PCP - General 07/09/10 documented as of this encounter
--- OUTSIDE RECORDS SUMMARY | 2024-01-05 20:08 | XMS_ITS | Encounter Summary ---
Author Organization [facility] Address [address] [place] [address] Care Team Providers Care Anesthesia Technician Name Role Phone Alma Delia Mejia MD Primary Care Provider [phone] Reason for Visit * Reason Onset Date Comments Other 09/15/2023 Encounter Details Date Type Department Care Team (Late st Contact Info) Description 09/15/2023 Telephone [facility] [address] [place] [address] Trent Dukes PA-C [address] [facility] [address] [place] [address] Other Social History Tobacco Use Types Packs/Day Years [...] on file documented as of this encounter Miscellaneous Notes * Telephone Encounter - Neida Mcneal RN - 09/16/2023 0830 EDT The work note was written by . Both pages faxed as requested * Telephone Encounter - Alysia Curran - 09/15/2023 7325 EDT Alma Delia came by today to ask for a work note similar to the one that the PT Therapist wrote for her. I have put a copy of this correspondence in James's folder and is uploaded to the chart. Please fax these 2 pages to Shane Lilly Attn: Rosa at [phone]. Thanks Alysia documented in this encounter Plan of Treatment Not on file documented as of this encounter Visit Diagnoses Not on filedocumented in this encounter Care Teams Anesthesia Technician Relationship Specialty Start Date End Date Alma Delia Mejia MD [address] [place] [phone] PCP - General 07/09/10 documented as of this encounter
--- OUTSIDE RECORDS SUMMARY | 2024-01-05 20:08 | XMS_ITS | Encounter Summary ---
Author Organization [facility] Address [address] [place] [address] Care Team Providers Care Cook Box Filler Name Role Phone Alma Delia Mejia MD Primary Care Provider [phone] Reason for Referral * Radiology Services (Routine/Next Available) - Closed Specialty Diagnoses / Procedures Referred By Trang rizzo Referred To Contact Radiology Diagnoses Left knee pain, unspecified chronicity Closed patellar dislocation, left, initial encounter Procedures MR KNEE WO CONTRAST LEFT Trent Dukes PA-C [address] [facility] [address] [place] [address] Phone: tel: fax: [facility] Referral ID Status Reason Start Date Expiration Date Visits Re quested Visits Authorized [id number] Closed 11/03/2023 1 1 Reason for Visit * Reason Comments Follow-up Encounter Details Date Type Department Care Team (Late st Contact Info) Description 11/03/2023 15:00 EDT Office Visit [facility] Orthopedics & Sport Medicine [address] [place] [address] Trent Dukes PA-C [address] [facility] [address] [place] [address] Left knee pain, unspecified chronicity (Primary Dx); Closed patellar dislocation, left, initial encounter Social History Tobacco Use Types Packs/Day Years [...] on file documented as of this encounter Progress Notes * Nati Owen MA - 11/03/2023 1500 EDT Alma Delia presents today for a f/u evaluation of her left knee DOI: 08/02/23 left patella dislocation LV with 08/11/23 per note recommend working with PT on quad strengthening and patellar tracking. Given patella tracking brace to stabilize. Discontinue knee immobilizer and WBAT. May need MRI and further evaluation with surgeon. On 2018 MRI the MPFL was attenuated and laxed XR left knee 08/15/23 * Trent Dukes PA-C - 11/03/2023 1500 EDT CHIEF COMPLAINT: Left patella dislocation 08/02/2023 Chief Complaint Patient presents with Left Knee - Follow-up SUBJECTIVE: Alma Delia here for follow-up evaluation of her left knee. She has had a longstanding history of problems with the left knee including dislocations subluxations of the patella. She did have a surgery with Dr. Sumner around 2004 secondary to dislocations. Then an arthroscopy was done on the left knee in 2018 to clear of loose bodies. Recent injury at work on 08/02/2023 twisted her upper bodysudden pop and severe pain went to emergency department diagnosed with patellar dislocation which was closed reduced. She has been working physical therapy however she does not feel she is making significant improvement. She is able to go downstairs a bit better she can go down consecutively but she needs to hold onto the railing. She is concerned of instability however the knee has not given outon her recently. She continues to have pain along the medial aspect of the patella especially with flexion. She feels her range of motion is still less than it should be especially with flexion. Deepknee bend or squat because a fair amount of pain. If she is sitting crosslegged she needs to extendthe knee because the kneecap will start hurting. She last had an MRI in 2018 that showed MPFL attenuated and lax The past medical, family and social history have been reviewed in the patient chart. No past medical history on file. Social History Tobacco Use Smoking status: Never Smokeless tobacco: Never Substance Use Topics Alcohol use: Not Currently No past surgical history on file. Allergies Allergen Reactions Clonazepam Other reaction(s): severe aggression Other - See Comments Anything in the benzo category per pt Oxycodone-Acetaminophen Other reaction(s): severe aggression/agitation Medications Prior to Today's Visit Medication Sig albuterol sulfate 90 mcg/actuation aero powdr breath act w/sensor 2 puff(s) inhaled prn (Patient not taking: Reported on 08/02/2023) Cholecalciferol, Vitamin D3, 25 mcg (1,000 unit) capsule 1-2 cap(s) orally once a day (Patient not taking: Reported on 08/02/2023) citalopram (CELEXA) 40 mg tablet Take 1 Tab by mouth daily. gabapentin (NEURONTIN) 300 mg capsule TAKE 1 CAPSULE BY MOUTH THREE TIMES DAILY (Patient not taking: Reported on 08/02/2023) ibuprofen (MOTRIN) 200 mg tablet Take 400 mg by mouth as needed. lamoTRIgine (LAMICTAL) 100 mg tablet 1 orally in the afternoon lamoTRIgine (LAMICTAL) 200 mg tablet TAKE 1 TABLET BY MOUTH EVERY DAY MEDICAL MARIJUANA minimal effective amount inhaled every 2 hours oxybutynin (DITROPAN-XL) 10 mg CR tablet Take 1 Tablet by mouth daily. QUEtiapine (SEROQUEL) 25 mg tablet 1 tab(s) orally at night as needed (Patient not taking: Reportedon 08/02/2023) TRI-SPRINTEC, 28, 0.18/0.215/0.25 mg-35 mcg (28) tablet Take 1 Tablet by mouth daily. No facility-administered medications prior to visit. OBJECTIVE: There were no vitals taken for this visit. There is no height or weight on file to calculate BMI. On physical exam, the patient is found to be a cooperative female who appears to be alert and oriented x 3. She is well-developed, well-nourished and in no significant distress. Breathing is unlabored. Skin is warm and dry to inspection and palpation. Appears to be neurovascularly intact. Ambulateswith a steady gait. Exam of the left knee trace to 1+ joint effusion no erythema, fluctuance or signs of infection. There was some reproducible patellar crepitus with flexion extension of the knee. No laxity to valgus stress varus stress anterior drawer Lachemann's. Negative Kae's. Very mild tenderness along the medial joint line without tenderness to lateral joint line. Previous x-ray did show possible displaced bone fragment adjacent to the medial facet of the patella. However, this was noted on the sunriseview which the sunrise view was not done on previous x-rays. ASSESSMENT: Left knee patellofemoral PLAN: She has been working physical therapy and showing some improvement but still has a fair amount of discomfort and inability to squat bend or kneel. She does have some apprehension however the patella has not dislocated since the previous injury. Previous x-ray does have some concern for displaced bony fragment along the medial patella facet. We discussed treatment including continuation of physical therapy, he continues using the knee brace versus MRI. She is concerned about the stability of the knee and if he needed she would be agreeable to discuss that with surgeon. For now I would like to get another MRI especially to assess that bone fragment, MPFL and for any internal derangement. Follow-up with Dr. Kat This note was prepared using voice recognition software and the EMR. There may be inadvertent errors and omissions. James Dukes PA-C 11/03/2023 documented in this encounter Plan of Treatment Scheduled Orders Name Type Priority Associated Diagnoses Orde r Schedule MR KNEE WO CONTRAST LEFT Imaging Routine Left knee pain, unspecified chronicity Closed patellar dislocation, left, initial encounter 1 Occurrences starting 11/03/2023 until 05/02/2025 documented as of this encounter Visit Diagnoses Diagnosis Left knee pain, unspecified chronicity- Primary Closed patellar dislocation, left, initial encounter documented in this encounter Care Teams Cook Box Filler Relationship Specialty Start Date End Date Alma Delia Mejia MD [address] [address] PCP - General 07/09/10 documented as of this encounter
--- OUTSIDE RECORDS SUMMARY | 2024-01-05 20:08 | XMS_ITS | Encounter Summary ---
Author Organization [facility] Address [address] [place] [address] Care Team Providers Care Sewing Machine Adjuster Name Role Phone Alma Delia Mejia MD Primary Care Provider [phone] Reason for Referral * PT/OT/ST (Routine/Next Available) - Closed Specialty Diagnoses / Procedures Referred By Trang rizzo Referred To Contact Diagnoses Left knee pain, unspecified chronicity Trent Dukes PA-C [address] [facility] [address] [place] [address] Phone: tel: fax: Referral ID Status Reason Start Date Expiration Date V isits Requested Visits Authorized [id number] Closed Specialty Services Required 08/11/2023 1 1 Question Answer Reason for Request: quadricep strengthening and patellar tracking, s/p patella dislocation 08/02/23 Comments Essential PT and [facility] [address] [facility] [id number] Reason for Visit * Reason Comments Pain * Consult (Urgent) - Authorization Not Required Specialty Diagnoses / Procedures Referred By Trang rizzo Referred To Contact Orthopedic Surgery Diagnoses Dislocation of left patella, initial encounter Jaspreet Rosen MD [address] [place] [address] Phone: tel: fax: [facility] Orthopedics & Sport Medicine [address] [place] [address] Phone: tel: fax: Referral ID Status Reason Start Date Expiration Date Visits Requested Visits Authorized [id number] Authorization Not Required Specialty Services Required 4 1 1 Encounter Details Date Type Department Care Team (Late st Contact Info) Description 08/11/2023 9:15 EDT Office Visit [facility] Orthopedics & Sport Medicine [address], [address] [place], [place] [address] rTent Dukes PA-C [address] [facility] [address] [place] [address] Left knee pain, unspecified chronicity [...] as of this encounter Progress Notes * Alona Fair MA - 08/11/2023 0915 EDT Alma Delia presents today for an evaluation of her left knee Referred from [facility] ED 08/02/23 per note was twisting while standing up and felt her knee pop and give out. Lowered herself to the ground. EMS called and noted a presumed patellar dislocation. 100mcg of fentanyl given and attempted reduction but unsuccessful. Sedated and reduced in ED. XR left knee 08/02/23 XR left knee ordered * Trent Dukes PA-C - 08/11/2023 0915 EDT CHIEF COMPLAINT: Left patella dislocation 08/02/2023 Chief Complaint Patient presents with Left Knee - Pain SUBJECTIVE: Alma Delia here for evaluation of her left knee. She was at work twisting turning over her upper body and felt a sudden pop and severe pain to the left knee. She noticed some deformity needed to call ambulance taken to the emergency department for reduction of the patella dislocation. Reduction was quite difficult and she needed conscious sedation but eventually able to relocate the patella and put her in a knee immobilizer which she has been compliant with. She has been full weightbearing and currently denies significant pain while weightbearing however she does go up and down stairs 1 at a time. Denies nocturnal symptoms. She has had a fair amount of swelling. She has had problems with that knee in the past and had 2 prior arthroscopies 02/2003 included debridement and what soundslike a microfracture of the patella. Again in 2018 arthroscopy for loose bodies however, never had prior patellar dislocations. She states it was quite painful when it occurred however once reduced the pain is significantly decreased. Past medical history for PTSD, bipolar, left knee arthroscopies x 2 The past medical, family and social history [...] steady gait. Exam of the left knee 3+ joint effusion no erythema, skin lesions, fluctuance or signs of infection. Straight leg raise intact. No tenderness over the quadricep or patellar tendon. Maintains full extension however she can only flex to about 30 degrees and quite uncomfortable and apprehensive thereafter. No laxity to valgus or varus stress. No tenderness to medial lateral joint line. Suboptimal however negative Kae's (unable to flex knee adequately). ASSESSMENT: Left patellar dislocation PLAN: X-ray of the left knee on the sunrise view along the medial aspect is a large area of calcification does not appear to be fracture fragments. It was evident on the lateral view and previous lateral x-ray however there was no recent sunrise view from the ER. This could represent a loose body Treatment options were discussed and I would like her to work with physical therapy on quadricep strengthening and patellar tracking. She was provided with a patellar knee tracker device which may help stabilize the patella. She also has a fair amount of swelling and Tubigrip was provided. Discontinue the knee immobilizer weightbearing activity as tolerated. Follow-up in 4 to 6 weeks to assess outcome of the therapy. She may likely need an MRI and further evaluation with surgeon. She did have aprevious MRI in 2018 and the MPFL was attenuated and laxed This note was prepared using voice recognition software and the EMR. There may be inadvertent errors and omissions. James Dukes PA-C 08/11/2023 documented in this encounter Plan of Treatment Scheduled Referrals Name Type Priority Associated Diagnoses Order Schedule AMB CONS/FOLLOW UP PHYSICAL THERAPY - OUTSIDE OF NETWORK Outpatient Referral Routine/Next Available Left knee pain, unspecified chronicity Expected: 08/18/2023 (Approximate), Expires: 08/10/2024 documented as of this encounter Results * XR KNEE LEFT 4 OR MORE VIEWS (08/11/2023 9:26 EDT) Anatomical Region Laterality Modality Lower Extremities Left Computed Radio graphy 08/11/2023 9:30 EDT Impressions 08/15/2023 11:14 EDT 1. ?? Patella normally aligned in relation to the femur with a mildly displaced fragment off the medial facet of the patella, new since 08/02/2023. 2. ?? Mild suprapatellar soft tissue fullness suggesting effusion and/or synovial hypertrophy. COMMENTS: Note the study was performed on 08/11/2023 9:30 AM and is reviewed on 08/15/2023. THIS DOCUMENT HAS BEEN ELECTRONICALLY SIGNED BY HELIO BLANK MD FOR ANY QUESTIONS OR CONCERNS REGARDING THIS REPORT PLEASE CALL [facility] AT [phone] Narrative 08/15/2023 11:14 EDT PROCEDURE INFORMATION: Exam: XR Left Knee Exam date and time: 08/11/2023 9:30 AM Age: 33 years old Clinical indication: Pain in left knee; Additional info: Left knee patellar dislocation TECHNIQUE: Imaging protocol: Radiologic exam of the left knee. Views: 4 or more views. COMPARISON: 1. ?? CR XR KNEE LEFT 4 OR MORE VIEWS 08/02/2023 4:55 PM 2. ?? CR XR KNEE LEFT 1-2 VIEWS 08/02/2023 4:02 PM FINDINGS: Bones/joints: The patella now appears normally aligned in relation to the femur. Newly evident is a 1.6 x 1.0 cm fracture fragment mildly displaced off the medial facet of the patella. No other fracture is identified. Soft tissues: Mild fullness of the soft tissues in the suprapatellar region is noted. The soft tissues appear otherwise grossly unremarkable. Procedure Note Helio Blank MD - 08/15/2023 PROCEDURE INFORMATION: Exam: XR Left Knee Exam date and time: 08/11/2023 9:30 AM Age: 33 years old Clinical indication: Pain in left knee; Additional info: Left knee patellar dislocation TECHNIQUE: Imaging protocol: Radiologic exam of the left knee. Views: 4 or more views. COMPARISON: 1. CR XR KNEE LEFT 4 OR MORE VIEWS 08/02/2023 4:55 PM 2. CR XR KNEE LEFT 1-2 VIEWS 08/02/2023 4:02 PM FINDINGS: Bones/joints: The patella now appears normally aligned in relation to the femur. Newly evident is a 1.6 x 1.0 cm fracture fragment mildly displaced off the medial facet of the patella. No other fracture is identified. Soft tissues: Mild fullness of the soft tissues in the suprapatellar region is noted. The soft tissues appear otherwise grossly unremarkable. IMPRESSION 1. Patella normally aligned in relation to the femur with a mildly displaced fragment off the medial facet of the patella, new since 08/02/2023. 2. Mild suprapatellar soft tissue fullness suggesting effusion and/or synovial hypertrophy. COMMENTS: Note the study was performed on 08/11/2023 9:30 AM and is reviewed on 08/15/2023. THIS DOCUMENT HAS BEEN ELECTRONICALLY SIGNED BY HELIO BLANK MD FOR ANY QUESTIONS OR CONCERNS REGARDING THIS REPORT PLEASE CALL [facility] [phone] Trent Dukes PA-C IMG DIAGNOSTIC IMAGING ORD ERABLES Final Result documented in this encounter Visit Diagnoses Diagnosis Left knee pain, unspecified chronicity- Primary Closed patellar dislocation, left, initial encounter documented in this encounter Care Teams Sewing Machine Adjuster Relationship Specialty Start Date End Date Alma Delia Mejia MD [address] [place] [id number] PCP - General 07/09/10 documented as of this encounter
--- OUTSIDE RECORDS SUMMARY | 2024-01-05 20:09 | XMS_ITS | Encounter Summary ---
Author Organization [facility] Address [address] [place] [address] Care Team Providers Care Fabrics And Material Cutter Name Role Phone Alma Delia Riley MD Primary Care Provider [phone] Encounter Details Date Type Department Care Team (Late st Contact Info) Description 10/23/2013 Results Only [facility] - [facility] ([facility] [address], [place] [id number] Alma Delia Riley MD [address] [place] [phone] Social History Tobacco Use Types Packs/Day Years Used Date Smoking Tobacco: Never Assessed Comments Unknown Sex and Gender Information Value Date Recorded Sex Assigned at Not on file Legal Sex Female 18:37 EST Gender Identity Female 01/05/2019 9:42 EST Sexual Orientation Not on file documented as of this encounter Plan of Treatment Not on file documented as of this encounter Procedures Procedure Name Priority Date/Time Associated Diagnosis Comments PAP TEST- RESULT ONLY Routine 10/23/2013 0:00 EDT documented in this encounter Results * PAP TEST- RESULT ONLY (10/23/2013 0:00 EDT) Pathology Report: CYTOPATHOLOGY REPORT Reports generated via electronic interface contain original data; however they are lacking the format of the original report. Caution should be taken when reading/interpreti ng unformatted reports. Name: ? ALMA DELIA ESPINOZA ? Accession #: ? [id number] : ? 1990 (Age: 23) ??F ?Collect Date: ? 10/23/2013 Location: ? [facility] ? Receive Date: ? 10/25/2013 Provider: ?ALMA DELIA RILEY MD Copy to: ? Specimen/Source: ?Pap Test, Cervix/Endocervix, ThinPrep Imaging System with manual evaluation Last Menstrual Period: ? 1 month ago Other: ? Additional clinical information: BLEMISH REMOVER and treatment hx: abnormal 2 years ago ? SPECIMEN ADEQUACY ? Satisfactory for Evaluation - transformation zone component present GENERAL CATEGORIZATION ? Negative for Intraepithelial Lesion or Malignancy ? Document reviewed and electronically signed by: ? Torri Malik, CT(ASCP) ? Report Date: ??10/31/2013 13:05 End of Report [facility]UDIA ZALDIVAR 10/23/2013 10/25/2013 us Alma Delia Riley MD PATHOLOGY ORDERABLES Final Res ult CLAUDIA ZALDIVAR [address] [place] [address] documented in this encounter Visit Diagnoses Not on filedocumented in this encounter Care Teams Fabrics And Material Cutter Relationship Specialty Start Date End Date Alma Delia Riley MD [address] [place] [phone] PCP - General 07/09/10 documented as of this encounter
--- OUTSIDE RECORDS SUMMARY | 2024-01-05 20:09 | XMS_ITS | Encounter Summary ---
Author Organization [facility] Address [address] [place] [address] Care Team Providers Care Decorator Lighting Fixtures Name Role Phone Alma Delia Mejia MD Primary Care Provider [phone] Reason for Visit * Reason Onset Date Comments Appointment Related 08/14/2020 Encounter Details Date Type Department Care Team (Late st Contact Info) Description 08/14/2020 Telephone [facility] Breast Imaging Mammography - [facility] [address] [place] [address] Lizzy Vasquez Appointment Related Social History Tobacco Use Types Packs/Day Years Used Date Smoking Tobacco: Never Assessed Interpersonal Safety Answer Date Record ed Physically Hurt Never 09/16/2019 Verbally Threaten Not on file 09/16/2019 Comments Unknown Sex and Gender Information Value Date Recorded Sex Assigned at Not on file Legal Sex Female 18:37 EST Gender Identity Female 01/05/2019 9:42 EST Sexual Orientation Not on file documented as of this encounter Miscellaneous Notes * Telephone Encounter - Lizzy Vasquez - 08/14/2020 1338 EDT Spoke with patient and she is now scheduled for breast imaging on 09/05/20. documented in this encounter Plan of Treatment Not on file documented as of this encounter Visit Diagnoses Not on filedocumented in this encounter Care Teams Decorator Lighting Fixtures Relationship Specialty Start Date End Date Alma Delia Mejia MD [address] [place] [address] PCP - General 07/09/10 documented as of this encounter
--- OUTSIDE RECORDS SUMMARY | 2024-01-05 20:09 | XMS_ITS | Encounter Summary ---
Author Organization [facility] Address [address] [place] [address] Care Team Providers Care Screener Perfumer Name Role Phone Alma Delia Mejia MD Primary Care Provider Encounter Details Date Type Department Care Team (Late st Contact Info) Description 04/27/[address] [facility] - [facility] - Main [place] [address] [place] [address] Luna Navarrete, DRY CLEANING COUNTER CLERK [address] [place] [address] [phone] Social History Tobacco Use Types Packs/Day Years [...] Procedure Name Priority Date/Time Associated Diagnosis Comments COMPLETE BLOOD COUNT WITH DIFFERENTIAL (AUTO) Routine 04/27/2018 14:18 EDT THYROID CASCADE Routine 04/27/2018 14:18 EDT PROLACTIN Routine 04/27/2018 14:18 EDT BASIC METABOLIC PANEL (BMP) Routine 04/27/2018 14:18 EDT documented in this encounter Results * BASIC METABOLIC PANEL (BMP) (04/27/2018 14:18 EDT) BUN - [facility] 11 10 - 26 mg/dL [facility]/27[facility]2018 [facility] 9.7 8.5 - 10.5 mg/dL 04/27/2018 18:25 [facility] Chloride 103 96 - 110 mmol/L 04/27/2018 18:25 [facility] CO2 Total 27 22 - 32 mEq/L 04/27/2018 18:25 [facility] CREATININE 0.72 0.52 - 1.04 mg/dL 04/27/2018 18:25 [facility] eGFR >60 04/27/2018 18:25 [facility] Comment: Chronic renal impairment is defined as GFR <60 Multiply result by 1.210 for patients. eGFR calculated using the IDMS-traceable MDRD Study Equation. ??(effective 12/17/2013) Anion Gap 7 0 - 18 04/27/2018 18:25 [facility] GLUCOSE - [facility] 86 70 - 100 mg/dL 04/27/2018 18:25 [facility] Potassium 4.2 3.5 - 5.0 mEq/L 04/27/2018 18:25 [facility] Sodium 137 136 - 145 mEq/L 04/27/2018 18:25 [facility] 04/27/2018 14:1 8 EDT 04/27/2018 17:39 EDT us Luna E Carlet DRY CLEANING COUNTER CLERK CHEMISTRY & BLOOD GAS ORDERABLE S Final Result [facility] * THYROID CASCADE (04/27/2018 14:18 EDT) TSH 0.62 0.46 - 4.68 uIU/mL 04/27/2018 18:55 EDT [facility] 04/27/2018 14:1 8 EDT 04/27/2018 17:39 EDT us Luna Navarrete DRY CLEANING COUNTER CLERK CHEMISTRY & BLOOD GAS ORDERABLE S Final Result [facility] * COMPLETE BLOOD COUNT WITH DIFFERENTIAL (AUTO) (04/27/2018 14:18 EDT) ABSOLUTE NEUTROPHIL COUN - [facility] 4.2 2.2 - 8.85 10e3/uL 04/27/2018 18:39 EDT [facility] BASO # - [facility] 0.05 0.01 - 0.11 10e/uL 04/27/2018 18:39 EDT [facility] BASO % - [facility] 1 0 - 2 % 04/27/2018 18:39 EDT [facility] EOS # - [facility] 0.27 0.03 - 0.61 e3/ 04/27/2018 18:39 EDT [facility] EOS % - [facility] 4 0 - 5 % 04/27/2018 18:39 EDT [facility] GRAN % - [facility] 64.7 40 - 80 % 04/27/2018 18:39 EDT [facility] HEMATOCRIT - [facility] 38.2 34.9 - 44.4 % 04/27/2018 18:39 EDT [facility] HEMOGLOBIN - [facility] 12.6 11.6 - 15.2 g/dl 04/27/2018 18:39 EDT [facility] IG# - [facility] 0.02 0 - 0.7 e3/ 04/27/2018 18:39 EDT [facility] IG% - [facility] 0.3 0 - 0.9 % 04/27/2018 18:39 T [facility] LYMPH # - [facility] 1.6 1.09 - 3.3 e3/ul 04/27/2018 18:39 EDT [facility] LYMPH% - [facility] 24.1 20 - 40 % 04/27/2018 18:39 EDT [facility] MEAN CORPUSCULAR HGB - [facility] 31.1 26.7 - 33.3 pg 04/27/2018 18:39 T [facility] MEAN CORPUSCULAR HGB CONC - [facility] 33.0 32.1 - 35.9 g/dL 04/27/2018 18:39 EDT [facility] MEAN CELL VOLUME - [facility] 94.3 81 - 98 fl 04/27/2018 18:39 [facility] MONO # - [facility] 0.4 0.1 - 0.8 10e3/uL 04/27/2018 18:39 [facility]O% - [facility] 5.9 0 - 12 % 04/27/2018 18:39 [facility] PLATELET COUNT 247 141 - 377 10e3/ul 04/27/2018 18:39 [facility] RED BLOOD COUNT - [facility] 4.05 3.86 - 5.04 10e3/ul 04/27/2018 18:39 [facility] RED CELL DISTRI WIDTH - [facility] 12.5 <14.7 % 04/27/2018 18:39 [facility] WHITE BLOOD COUNT - [facility] 6.5 4.0 - 12.4 10e3/ul 04/27/2018 18[facility]39 [facility] 04/27/2018 14:1 8 EDT 04/27/2018 17:40 EDT us Luna Navarrete DRY CLEANING COUNTER CLERK HEMATOLOGY & PF4 ORDERABLES Fin al Result [facility] * PROLACTIN (04/27/2018 14:18 EDT) Prolactin 10.0 () ng/ml 04/28/2018 14:45 EDT [facility] Comment: Non-: 2.8-29.2 : 9.7-208.5 Post Menopausal: 1.8-20.3 Test performed or referred by The [address] [address] 04/27/2018 14:1 8 EDT 04/27/2018 17:39 EDT us Luna E Carlet DRY CLEANING COUNTER CLERK CHEMISTRY & BLOOD GAS ORDERABLE S Final Result [facility] documented in this encounter Visit Diagnoses Not on filedocumented in this encounter Care Teams Screener Perfumer Relationship Specialty Start Date End Date Alma Delia Mejia MD [address] [place] [address] PCP - General 07/09/10 documented as of this encounter
--- OUTSIDE RECORDS SUMMARY | 2024-01-05 20:09 | XMS_ITS | Encounter Summary ---
Author Organization [facility] Address [address] [place] [address] Care Team Providers Care Outside Sales Name Role Phone Alma Delia Mejia MD Primary Care Provider [phone] Reason for Visit * Reason Comments Other Encounter Details Date Type Department Care Team (Late st Contact Info) Description 09/16/2019 Refill [facility] Family Psychiatry [address] [place] [address] Casi Rose, PUZZLE ASSEMBLER [address] [facility] [address] [place] [address] Other Social History Tobacco Use Types Packs/Day [...] on file documented as of this encounter Ordered Prescriptions Prescription Sig Dispense Quantity Refills Last Filled Start Date End Date lamoTRIgine (LAMICTAL) 200 mg tablet TAKE 1 TABLET BY MOUTH EVERY DAY 30 Tab 1 09/17/2019 citalopram (CELEXA) 40 mg tablet TAKE 1 TABLET BY MOUTH EVERY DAY 30 Tab 1 09/17/2019 01/25/2020 documented in this encounter Miscellaneous Notes * Telephone Encounter - Vicenta Galo RN - 09/17/2019 1023 EDT Last ov 12/12/19 no future visit scheduled citaloprm 40 mg take 1 tab by mouth daily Last filled 08/15/19 lamictil 200 mg take 1 tab by mouth daily last filled 08/15/19 documented in this encounter Plan of Treatment Not on file documented as of this encounter Visit Diagnoses Not on filedocumented in this encounter Discontinued Medications Medication Sig Discontinue Reason Start Date End Da te lamoTRIgine (LAMICTAL) 200 mg tablet TAKE 1 TABLET BY MOUTH DAILY 08/15/2019 09/17/2019 citalopram (CELEXA) 40 mg tablet TAKE 1 TABLET BY MOUTH DAILY 08/15/2019 09/17/2019 documented as of this encounter Care Teams Outside Sales Relationship Specialty Start Date End Date Alma Delia Mejia MD [address] [facility] [place] [phone] PCP - General 07/09/10 documented as of this encounter
--- OUTSIDE RECORDS SUMMARY | 2024-01-05 20:09 | XMS_ITS | Encounter Summary ---
Author Organization [facility] Address [address] [place] [address] Care Team Providers Care Air Valve Mechanic Name Role Phone Alma Delia Mejia MD Primary Care Provider [phone] Encounter Details Date Type Department Care Team (Late st Contact Info) Description 10/03/2021 Lab Requisition [facility] Pathology & Laboratory Medicine - [facility] [address] [place] [address] Outr Resulting Lab, Provider Social History Tobacco Use Types Packs/Day Years [...] Procedure Name Priority Date/Time Associated Diagnosis Comments ZZCOVID-19 TEST [facility] PCR Today 10/02/2021 13:00 EDT COVID-19 TESTING Routine 10/02/2021 13:0 0 EDT documented in this encounter Results * COVID-19 TEST [facility] PCR (10/02/2021 13:00 EDT) Swab 10/02/2021 13:0 0 EDT 10/03/2021 21:47 EDT us Provider Outr Resulting Lab MICROBIOLOGY - GENER AL ORDERABLES Final Result Performing Organization Address [facility] de Phone Number [facility] [address] [place] [address] * COVID-19 TESTING (10/02/2021 13:00 EDT) COVID-19 rt-PCR Result Negative Negative 10/04/2021 1:48 EDT [facility] Comment: This test has not been FDA cleared or approved. This test has been authorized by FDA under an EUA for use by authorized laboratories. This test has been authorized only for detection of nucleic acid from 2019-nCoV, not for any other viruses or pathogens. This test is only authorized for the duration of the declaration that circumstances exist justifying the authorization of emergency use of in vitro diagnostic tests for detection and/or diagnosis of 2019-nCoV under section 564(b)(1) of Act, 21 U.S.C ?? 360bbb-3(b) (1), unless the authorization is terminated or revoked sooner. Negative results do not preclude 2019-nCoV infection and should not be used as the sole basis for treatment or other patient management decisions. Negative results must be combined with clinical observations, patient history, and epidemiological information. Performed on the Walk Scoreher Fusion instrument Performing Lab [place] [facility] 10/04/2021 1:48 EDT [facility] Swab 10/02/2021 13:0 0 EDT 10/03/2021 21:47 EDT us Provider Outr Resulting Lab MICROBIOLOGY - GENER AL ORDERABLES Final Result Performing Organization Address City/[facility]/ZIP Co de Phone Number [facility] [address] [place] [address] documented in this encounter Visit Diagnoses Not on filedocumented in this encounter Care Teams Air Valve Mechanic Relationship Specialty Start Date End Date Alma Delia Mejia MD [address] [place] [address] PCP - General 07/09/10 documented as of this encounter
--- OUTSIDE RECORDS SUMMARY | 2024-01-05 20:09 | XMS_ITS | Encounter Summary ---
Author Organization [facility] Address [address] [place] [address] Care Team Providers Care Foiling Machine Operator Name Role Phone Alma Delia Mejia MD Primary Care Provider [phone] Encounter Details Date Type Department Care Team (Late st Contact Info) Description 08/25/2010 Historical Results Only [facility] - Main [place] [address] [place] [id number] Monik Shipman MD [address] [place] [address], [address] [place] [address] Social History Tobacco Use Types Packs/Day Years [...] Procedure Name Priority Date/Time Associated Diagnosis Comments SURGICAL PATHOLOGY Routine 08/25/2010 documented in this encounter Results * SURGICAL PATHOLOGY (08/25/2010) 08/25/2010 08/25/2010 15: 49 EDT Narrative [facility] - 08/26/2010 15:02 EDT PREOP ASCUS PAP, HPV POS Procedure: COLPOSCOPY Tissue Removed 1. CX BX 6 2. CX BX 12 3. ECC Clinical Hx: ON DEPO LMP: Prev.Abn Pap: 2008 ----- ------- Name: ALMA DELIA ESPINOZA ? : 86 ?Age/Sex: 29/F ?Unit#: [id number] ? Loc: AGO ? Status: REG POV ?? Reg Date: 08/25/10 ? Pt.Phone Number: ? ----- ------- Specimen: [id number] ? STATUS: SOUT ?Spec Date:08/25/10 ? Physician Copies: ?Monik Shipman MD ? Tissues: A ?? Female Reproductive System (CERVIX @ 6 O'CLOCK) ?Faye Zapien MD ? B ?? Female Reproductive System (CERVIX @ 12 O'CLOCK) ? C ?? Female Reproductive System (ENDOCERVIX) ? CPT: 26523 ?? Units: ??3 ?FINAL DIAGNOSIS ? A. Cervix, 6 o'clock, biopsy; ? - Scant benign endocervical glandular cells and mucoid debris. ? B. Cervix, 12 o'clock, biopsy; ? - Low grade squamous intraepithelial lesion (FIDELINA I). ? C. Endocervix, curettage; ? - Scant benign endocervical tissue. ? GROSS DESCRIPTION ? A. Received in formalin labeled with the patient's name and cx bx 6 o'clock ? is a minute piece of translucent viramontes-dubois tissue measuring less than 0.1 cm, ? e.s. 1. ? B. Received in formalin labeled with the patient's name and cx bx 12 o'clock ? is a 0.2 cm piece of viramontes-pink mucosa, e.s. 1. ? C. Received in formalin labeled with the patient's name and ECC is an ? estimated less than 0.1 cc aggregate of minute tissue flecks, filtered, e.s. 1. ? CP ?? PREOP DX/CLINICAL HISTORY ?ASCUS PAP, HPV POSITIVE. Signed ____(signature on file)____ Daisy Ramirez M.D. 08/26/10 By the signature above, the attending physician certifies that he/she has personally conducted a gross and/or microscopic examination of the described specimens and rendered or confirmed the above diagnosis. Test Performed by [facility], [address] [place] [address] Oil Boiler: Daisy Ramirez MD PHD ----- ------- us Monik Shipman MD PATHOLOGY ORDERABLES Final Resu lt [facility] documented in this encounter Visit Diagnoses Not on filedocumented in this encounter Care Teams Foiling Machine Operator Relationship Specialty Start Date End Date Alma Delia Mejia MD [address] [facility] [place] [phone] PCP - General 07/09/10 documented as of this encounter
--- OUTSIDE RECORDS SUMMARY | 2024-01-05 20:09 | XMS_ITS | Encounter Summary ---
Author Organization [facility] Address [address] [place] [address] Care Team Providers Care Concrete Float Maker Name Role Phone Alma Delia Mejia MD Primary Care Provider [phone] Csai Rose RN RESIDENTIAL Unavailable [phone] Reason for Visit * Reason Comments Other Encounter Details Date Type Department Care Team (Late st Contact Info) Description 01/24/2019 Refill [facility] Family Psychiatry [address] [place] [address] Faye Zapien MD Other Social History Tobacco Use Types Packs/Day Years Used Date Smoking Tobacco: Never Assessed Comments Unknown Sex and Gender Information Value Date Recorded Sex Assigned at Not on file Legal Sex Female 18:37 EST Gender Identity Female 01/05/2019 9:42 EST Sexual Orientation Not on file documented as of this encounter Ordered Prescriptions Prescription Sig Dispense Quantity Refills Last Filled Start Date End Date citalopram (CELEXA) 40 mg tablet TAKE 1 TABLET BY MOUTH ONCE DAILY 30 Tab 01/24/2019 03/12/2019 documented in this encounter Miscellaneous Notes * Telephone Encounter - Gisela Pagan - 01/24/[address] Zapien's patient documented in this encounter Plan of Treatment Not on file documented as of this encounter Visit Diagnoses Not on filedocumented in this encounter Discontinued Medications Medication Sig Discontinue Reason Start Date End Da te citalopram (CELEXA) 40 mg tablet 1 tab(s) orally once a day Reorder 01/24/2019 documented as of this encounter Care Teams Concrete Float Maker Relationship Specialty Start Date End Date Alma Delia Mejia MD [address] [place] [address] PCP - General 07/09/10 Casi Rose, JENY [address] [phone] Physician Speech Pathology Teacher Mental Health 12/06/19 05/05/20 documented as of this encounter
--- OUTSIDE RECORDS SUMMARY | 2024-01-05 20:09 | XMS_ITS | Encounter Summary ---
Author Organization [facility] Address [address] [place] [address] Care Team Providers Care Dewatering Filtering Supervisor Name Role Phone Alma Delia Mejia MD Primary Care Provider [phone] Encounter Details Date Type Department Care Team (Late st Contact Info) Description 05/13/2018 Historical Results Only [facility] - [address] [address] William Mcarthur MD [address] [place] [phone] Social History Tobacco Use Types Packs/Day Years [...] Procedure Name Priority Date/Time Associated Diagnosis Comments ETHYL ALCOHOL - [facility] Routine 05/13/2018 1:19 EDT COMPLETE BLOOD COUNT WITH DIFFERENTIAL (AUTO) Routine 05/13/2018 1:19 EDT THYROID CASCADE Routine 05/13/2018 1:19 EDT COMPREHENSIVE METABOLIC PANEL (CMP) Routine 05/13/2018 1:19 EDT DRUG SCREEN, PRESCRIPTION/OTC, URINE Routine 05/13/2018 0:15 EDT documented in this encounter Results * ETHYL ALCOHOL - [facility] (05/13/2018 1:19 EDT) [facility] ETHYL ALCOHOL - [facility] <10.0 <10 mg/dL 05/13/2018 1:40 EDT [facility] 05/13/2018 1:19 EDT 05/13/2018 1:29 EDT us William Mcarthur MD CHEMISTRY & BLOOD GAS ORD ERABLES Final Result [facility] * (ABNORMAL) COMPREHENSIVE METABOLIC PANEL (CMP) (05/13/2018 1:19 EDT) [facility] Albumin % 5.0(H) 3.4 - 4.9 g/dL [facility]2018 [facility] ALKALINE PHOSPHATASE - [facility] 93 38 - 126 U/L 05/13/2018 1:40 [facility] BILIRUBIN TOTAL 0.6 0.2 - 1.3 mg/dL 05/13/2018 1:40 [facility] BUN - [facility] 10 10 - 26 mg/dL 05/13/2018 1:40 [facility] CALCIUM - [facility] 10.5 8.5 - 10.5 mg/dL 05/13/2018 1:40 [facility] Chloride 102 96 - 110 mmol/L 05/13/2018 1:40 [facility] CO2 Total 28 22 - 32 mEq/L 05/13/2018 1:40 [facility] CREATININE 0.79 0.52 - 1.04 mg/dL 05/13/2018 1:40 [facility] eGFR >60 05/13/2018 1:40 [facility] Comment: Chronic renal impairment is defined as GFR <60 Multiply result by 1.210 for patients. eGFR calculated using the IDMS-traceable MDRD Study Equation. ??(effective 12/17/2013) Anion Gap 11 0 - 18 05/13/2018 1:40 EDT [facility] GLUCOSE - [facility] 97 70 - 100 mg/dL 05/13/2018 1:40 EDT [facility] Potassium 3.9 3.5 - 5.0 mEq/L 05/13/2018 1:40 EDT [facility] Sodium 141 136 - 145 mEq/L 05/13/2018 1:40 EDT [facility] TOTAL PROTEIN - [facility] 8.5(H) 6.2 - 8.2 gm/dL 05/13/2018 1:40 EDT [facility] SGOT/AST - [facility] 21 14 - 36 U/L 05/13/2018 1:40 T [facility] SGPT/ALT - [facility] 19 9 - 52 U/L 9 1:40 EDT [facility] 05/13/2018 1:19 EDT 05/13/2018 1:29 EDT us William Mcarthur MD CHEMISTRY & BLOOD GAS ORD ERABLES Final Result [facility] * THYROID CASCADE (05/13/2018 1:19 EDT) Pathologist [facility] TSH 1.40 0.46 - 4.68 uIU/mL 05/13/2018 2:11 EDT [facility] 05/13/2018 1:19 EDT 05/13/2018 1:29 EDT us William Mcarthur MD CHEMISTRY & BLOOD GAS ORD ERABLES Final Result [facility] * COMPLETE BLOOD COUNT WITH DIFFERENTIAL (AUTO) (05/13/2018 1:19 EDT) ABSOLUTE NEUTROPHIL COUN - [facility] 3.4 2.2 - 8.85 10e3/uL 05/13/2018 1:39 EDT [facility] BASO # - [facility] 0.05 0.01 - 0.11 10e/uL 05/13/2018 1:39 [facility] BASO % - [facility] 1 0 - 2 % 05/13/2018 1:39 [facility] EOS # - [facility] 0.08 0.03 - 0.61 10e3/ul 05/13/2018 1:39 [facility] EOS % - [facility] 1 0 - 5 % 05/13/2018 1:39 [facility] GRAN % - [facility] 56.7 40 - 80 % 05/13/2018 1:39 [facility] HEMATOCRIT - [facility] 40.8 34.9 - 44.4 % 05/13/2018 1:39 [facility] HEMOGLOBIN - [facility] 13.3 11.6 - 15.2 g/dl 05/13/2018 1:39 [facility] IG# - [facility] 0.02 0 - 0.7 10e3/uL 05/13/2018 1:39 [facility] IG% - [facility] 0.3 0 - 0.9 % 05/13/2018 1:39 [facility] LYMPH # - [facility] 2.0 1.09 - 3.3 10e3/ul 05/13/2018 1:39 [facility] LYMPH% - [facility] 33.9 20 - 40 % 05/13/2018 1:39 [facility] MEAN CORPUSCULAR HGB - [facility] 30.9 26.7 - 33.3 pg 05/13/2018 1:39 [facility] MEAN CORPUSCULAR HGB CONC - [facility] 32.6 32.1 - 35.9 g/dL 05/13/2018 1:39 [facility] MEAN CELL VOLUME - [facility] 94.9 81 - 98 fl 05/13/2018 1:39 [facility] MONO # - [facility] 0.4 0.1 - 0.8 10e3/uL 05/13/2018 1:39 [facility] MONO% - [facility] 7.0 0 - 12 % 05/13/2018 1:39 [facility] PLATELET COUNT 272 141 - 377 10e3/ul 05/13/2018 1:39 EDT [facility] RED BLOOD COUNT - [facility] 4.30 3.86 - 5.04 10e3/ul 05/13/2018 1:39 EDT [facility] RED CELL DISTRI WIDTH - [facility] 12.6 <14.7 % 05/13/2018 1:39 EDT [facility] WHITE BLOOD COUNT - [facility] 6.0 4.0 - 12.4 10e3/ul 05/13/2018 1:39 EDT [facility] 05/13/2018 1:19 EDT 05/13/2018 1:30 EDT us William Mcarthur MD HEMATOLOGY & PF4 ORDERABL ES Final Result [facility] * (ABNORMAL) DRUG SCREEN, PRESCRIPTION/OTC, URINE (05/13/2018 0:15 EDT) AMPHETAMINES NEG NEG 05/13/2018 0:50 EDT [facility] BARBITURATES,UR - [facility] NEG NEG 05/13/2018 0:50 EDT [facility] BENZODIAZEPINES NEG NEG 9 0:50 EDT [facility] COCAINE,URINE - [facility] NEG NEG [facility]2018 [facility] MAMP (METHAMPHETAMINES - [facility] NEG NEG 05/13/2018 0:50 EDT [facility] MARIJUANA,URINE - [facility] POS(A) NEG 05/13/2018 0:50 EDT [facility] MTD (METHADONE) - [facility] NEG NEG 05/13/2018 0:50 EDT [facility] OPIATES,URINE - [facility] NEG NEG 05/13/2018 [facility] OXY (OXYCODONE[facility] - [facility] NEG NEG 05/13/2018 0:50 EDT [facility] PCP (PHENCYCLIDINE) - [facility] NEG NEG 05/13/2018 0:50 EDT [facility] PROPOXYPHENE (PPX) - [facility] NEG NEG 05/13/2018 0:50 EDT [facility] TRICYCLIC ANTIDEPRESSANTS - [facility] NEG NEG 05/13/2018 0:50 EDT [facility] Comment: Drug Class ?Cutoff Concentration Amphetamines (AMP) ?500 ng/ml Barbiturates (BAR) ?200 ng/ml Benzodiazepines (BZO) ? 150 ng/ml Cocaine (TRUDY) ? 150 ng/ml Methamphetamine (mAMP) ?500 ng/ml Methadone (MTD) ? 200 ng/ml Opiates (OPI) ? 100 ng/ml Oxycodone (OXY) ? 100 ng/ml Phencyclidine (PCP) ?25 ng/ml Tetrahydrocannabinol (THC) ? 50 ng/ml Propoxyphene (PPX) ?300 ng/ml Tricyclic antidepressants (TCA) ? 300 ng/ml This is a screening assay only, intended for use in clinical monitoring or management of patients. False positive or false negative results can occur. If confirmation testing is needed, please call the lab. Specimens are retained in the laboratory for 7 days. 05/13/2018 0:15 EDT 05/13/2018 0:34 EDT us William Mcarthur MD URINALYSIS ORDERABLES Fin al Result [facility] documented in this encounter Visit Diagnoses Not on filedocumented in this encounter Care Teams Dewatering Filtering Supervisor Relationship Specialty Start Date End Date Alma Delia Mejia MD [address] [place] [phone] PCP - General 07/09/10 documented as of this encounter
--- OUTSIDE RECORDS SUMMARY | 2024-01-05 20:09 | XMS_ITS | Encounter Summary ---
Author Organization [facility] Address [address] [place] [address] Care Team Providers Care Property Claim Rep Name Role Phone Unavailable Primary Care Provider Unavailabl e Encounter Details Date Type Department Care Team (Late st Contact Info) Description 06/29/2010 Results Only [facility] Laboratory Services - [facility] ([facility]) [address] [place] [address] [phone] Alma Delia Mejia MD [address] [place] [phone] Social History Tobacco Use Types Packs/Day [...] Diagnosis Comments PAP TEST- RESULT ONLY Routine 06/29/2010 0:00 EDT documented in this encounter Results * PAP TEST- RESULT ONLY (06/29/2010 0:00 EDT) Pathology Report: CYTOPATHOLOGY REPORT ? Reports generated via electronic interface contain original data; ? however they are lacking the format of the original report. ? Caution should be taken when reading/interpreti ng unformatted reports. ? Name: ? ALMA DELIA NUÑEZ ? Accession #: ? [id number] ? : ? 1990 (Age: 20) ??F ?Collect Date: ? 06/29/2010 ? Location: ? [facility] ? Receive Date: ? 07/01/2010 ? Provider: ALMA DELIA ROSEMARY MD ? Copy to: ? Final Report ? SPECIMEN ADEQUACY ? Satisfactory for Evaluation ? - transformation zone component present ? GENERAL CATEGORIZATION ? Epithelial Cell Abnormality ? INTERPRETATION ? Squamous Cell Abnormality - Atypical squamous cells, undetermined ? significance (ASC-US). ? EDUCATIONAL NOTES/RECOMMENDATI ONS ? [facility] recommends following the 2006 Consensus Guidelines for the Management of Women with Abnormal Cervical Cancer Screening Tests (JLGTD, ? 2007;11(4):201-222 ). ??Consensus guidelines are available online at ? www.ASCCP.org. ? Hormonal/Contracep tive status: Depo-Provera ? Previous Gynecologic Pathology: ASC-US: 2008 ? Specimen/Source: ??Pap Test, Cervix/Endocervix, ThinPrep Imaging System with ? manual evaluation ? Document reviewed and electronically signed by: ? GLADWYN LEIMAN MBBCh ? Report ??Date: 07/08/2010 17:40 ? HPV with Pap Test ? Date Ordered: ? 07/08/2010 ? Status: ?? Signed Out ?Date Complete: ? 07/13/2010 ? By: ??System Interface ? Date Reported: ? 07/13/2010 ? Interpretation ? RESULT: Positive for one or more of HPV types 16,18,31,33,35,39, 45, ? 51,52,56,58,59, or 68. These high/intermediate risk HPV ? types are associated with dysplasia and some cervical ? cancers. ? Comments ? Document reviewed and electronically signed by: ? System Interface ? Report date: 07/13/2010 ? By the signature above, the attending physician certifies that he/she has ? personally conducted a gross and/or microscopic examination of the described ? specimens and rendered or confirmed the above diagnosis. ? End of Report ? CLAUDIA ZALDIVAR 06/29/2010 07/01/2010 us Alma Delia Mejia MD PATHOLOGY ORDERABLES Final Res ult CLAUDIA ZALDIVAR [address] [place] [address] documented in this encounter Visit Diagnoses Not on filedocumented in this encounter
--- OUTSIDE RECORDS SUMMARY | 2024-01-05 20:09 | XMS_ITS | Encounter Summary ---
Author Organization [facility] Address [address] [place] [address] Care Team Providers Care Irrigator Name Role Phone Alma Delia Mejia MD Primary Care Provider [phone] Reason for Referral * Radiology Services (Routine) - Closed Specialty Diagnoses / Procedures Referred By Trang rizzo Referred To Contact Diagnoses Discharge from left nipple Procedures US BREAST LIMITED LEFT Alma Delia Mejia MD [address] [place] [address] Phone: tel: fax: Referral ID Status Reason Start Date Expiration Date Visits Re quested Visits Authorized [id number] Closed 08/13/2020 1 1 Reason for Visit * Radiology Services (Routine) - Closed Specialty Diagnoses / Procedures Referred By Trang rizzo Referred To Contact Diagnoses Discharge from left nipple Procedures US BREAST LIMITED LEFT Alma Delia Mejia MD [address] [place] [address] Phone: tel: fax: Referral ID Status Reason Start Date Expiration Date Visits Re quested Visits Authorized [id number] Closed 08/13/2020 1 1 Encounter Details Date Type Department Care Team (Latest Contact Info) Description 09/05/2020 12:47 EDT - 09/05/2020 23:59 EDT Hospital Encounter [facility] Breast Imaging Ultrasound - [address] [address] Discharge from left nipple Discharge Disposition: Home or Self Care Social [...] on file documented as of this encounter Medications at Time of Discharge [...] Discharge Disposition Disposition Code Departure Means Destination Home or Self Care documented in this encounter Plan of Treatment Not on file documented as of this encounter Procedures Procedure Name Priority Date/Time Associated Diagnosis Comments US BREAST LIMITED LEFT Routine 09/05/2020 13:06 EDT Discharge from left nipple documented in this encounter Results * US BREAST LIMITED LEFT (09/05/2020 13:06 EDT) Anatomical Region Laterality Modality Breast Left Ultrasound 09/05/2020 13:2 4 EDT Narrative 09/05/2020 13:24 EDT MA BREAST DIAGNOSTIC MARQUITA BILATERAL, US BREAST LIMITED LEFT ??09/05/2020 11:00 AM Signs and Symptoms/Comments: left nipple discharge. Right breast screening Comparison: None. This is the patient's baseline mammogram. Right breast findings: Digital diagnostic views of the right breast were obtained with standard 3-D/synthesized 2-D technique. The breast tissue is heterogeneously dense, which can obscure small masses. There is no dominant mass or suspicious calcification. Left breast findings: Digital diagnostic views of the left breast were obtained with standard 3-D/synthesized 2-D technique. The standard views are supplemented with spot compression XCCL and MLO 3-D/synthesized 2D views. The breast tissue is heterogeneously dense, which can obscure small masses. On the original standard craniocaudal and MLO views, an asymmetry was noted laterally on the craniocaudal view and a second asymmetry was noted superiorly on the MLO view. These efface on the additional spot views and appear similar to normal breast tissue. Sonography was targeted to the left nipple and subareolar region and the upper outer quadrant. Two-handed nipple roll technique was utilized to assess the nipple and subareolar region. There is no nipple abnormality or abnormality of the subareolar ducts to account for the degree of spontaneous unilateral discharge. There is only normal-appearing dense echogenic breast tissue in the upper outer quadrant. Therefore the originally described asymmetries are not viewed with concern. Incidental note is made of a small benign cyst at 3:00, 4 cm from the nipple measuring 6 x 3 x 6 mm. Impression right breast: Negative, BI-RADS Category 1. Impression left breast: Benign, BI-RADS Category 2. Recommendation: The patient is advised to follow-up with her physician regarding her symptomatology of spontaneous left nipple discharge. If this is deemed pathologic discharge, surgical referral would be recommended. We currently recommend annual screening mammography beginning at age 40. This examination was interpreted with the aid of computer-assisted detection (CAD) technology. Results and recommendations were discussed with the patient by the cake maker at the time of the exam. Overall assessment: BI-RADS Category Assessment 2: Benign Findings. These results will be communicated to your patient via a lay letter from Radiology. us Alma Delia Mejia MD IMG US ORDERABLES Final Result documented in this encounter Visit Diagnoses Diagnosis Discharge from left nipple documented in this encounter Care Teams Irrigator Relationship Specialty Start Date End Date Alma Delia Mejia MD [address] [facility] [place] [address] PCP - General 07/09/10 documented as of this encounter
--- OUTSIDE RECORDS SUMMARY | 2024-01-05 20:09 | XMS_ITS | Encounter Summary ---
Author Organization [facility] Address [address] [place] [address] Care Team Providers Care Loan Operations Specialist Name Role Phone Alma Delia Mejia MD Primary Care Provider [phone] Encounter Details Date Type Department Care Team (Late st Contact Info) Description 09/03/2019 Orders Only [facility] Family Psychiatry [address] [place], [place] [phone] Faye Zapien MD Social History Tobacco Use Types Packs/Day Years Used Date Smoking Tobacco: Never Assessed Comments Unknown Sex and Gender Information Value Date Recorded Sex Assigned at Not on file Legal Sex Female 18:37 EST Gender Identity Female 01/05/2019 9:42 EST Sexual Orientation Not on file documented as of this encounter Ordered Prescriptions Prescription Sig Dispense Quantity Refills Last Filled Start Date End Date gabapentin (NEURONTIN) 300 mg capsule 1 cap(s) orally 3 times a day 90 Cap 09/03/2019 10/01/2019 documented in this encounter Plan of Treatment Not on file documented as of this encounter Visit Diagnoses Not on filedocumented in this encounter Discontinued Medications Medication Sig Discontinue Reason Start Date End Da te gabapentin (NEURONTIN) 300 mg capsule 1 cap(s) orally 3 times a day Reorder 09/03/2019 documented as of this encounter Care Teams Loan Operations Specialist Relationship Specialty Start Date End Date Alma Delia Mejia MD [address] [place] [address] PCP - General 07/09/10 documented as of this encounter
--- OUTSIDE RECORDS SUMMARY | 2024-01-05 20:09 | XMS_ITS | Encounter Summary ---
Author Organization [facility] Address [address] [place] [address] Care Team Providers Care Data Entry Analyst Name Role Phone Alma Delia Mejia MD Primary Care Provider [phone] Encounter Details Date Type Department Care Team (Late st Contact Info) Description 06/24/2017 Historical Results Only [facility] Radiology Results [address] [place], [place] [id number] Darvin Perales MD [address] [place] [address] Social History Tobacco Use Types Packs/Day [...] XR KNEE LEFT 4 OR MORE VIEWS 06/24/2017 1:28 EDT documented in this encounter Results * XR KNEE LEFT 4 OR MORE VIEWS (06/24/2017 1:28 EDT) Anatomical Region Laterality Modality Lower Extremities Left Other 06/24/2017 1:28 EDT Narrative 06/24/2017 1:28 EDT ? EXAM: RADIOLOGY/KNEE COMPLETE LT 4+VIEW ?? EX. D/ (0045) ? CLINICAL INFORMATION: ? TRAUMA, PAIN ? EXAM: ? XR Left Knee Complete, 4 or More Views ? CLINICAL HISTORY: ? 27 years old, female; Pain; Knee; Left; Additional info: ? Trauma, pain ? TECHNIQUE: ? Four or more views of the left knee. ? COMPARISON: ? No relevant prior studies available. ? FINDINGS: ? Bones/joints: ??No acute fracture. ??Tiny ossicle or ? calcification projected posterior to patella. ??No dislocation. ? No significant joint effusion. ? Soft tissues: ??Unremarkable. ? IMPRESSION: ? 1. ??No fracture. ? 2. ??If pain persists, suggest MRI to evaluate for occult ? fracture/internal arrangement. ? REPORT SIGNED IN OTHER VENDOR SYSTEM 06/24/2017 ?Reported By: Ronald Donald MD ? CC: ? Transcribed Date/Time: 06/24/2017 (0128) ? Work Ticket Distributor: .[employer] ? Printed Date/Time: 08/04/2018 (1607) ? PAGE 1 ? Signed Report ? Procedure Note Ronald Donald MD - 12/21/2018 EXAM: RADIOLOGY/KNEE COMPLETE LT 4+VIEW EX. D/ (0045) CLINICAL INFORMATION: TRAUMA, PAIN EXAM: XR Left Knee Complete, 4 or More Views CLINICAL HISTORY: 27 years old, female; Pain; Knee; Left; Additional info: Trauma, pain TECHNIQUE: Four or more views of the left knee. COMPARISON: No relevant prior studies available. FINDINGS: Bones/joints: No acute fracture. Tiny ossicle or calcification projected posterior to patella. No dislocation. No significant joint effusion. Soft tissues: Unremarkable. IMPRESSION: 1. No fracture. 2. If pain persists, suggest MRI to evaluate for occult fracture/internal arrangement. REPORT SIGNED IN OTHER VENDOR SYSTEM 06/24/2017 Reported By: Ronald Donald MD CC: Transcribed Date/Time: 06/24/2017 (0128) Work Ticket Distributor: Printed Date/Time: 08/04/2018 (1609) PAGE 1 Signed Report Darvin Perales MD IMG DIAGNOSTIC IMAGING ORDERABLES Final Result documented in this encounter Visit Diagnoses Not on filedocumented in this encounter Care Teams Data Entry Analyst Relationship Specialty Start Date End Date Alma Delia Mejia MD [address] [place] [phone] PCP - General 07/09/10 documented as of this encounter
--- OUTSIDE RECORDS SUMMARY | 2024-01-05 20:09 | XMS_ITS | Encounter Summary ---
Author Organization [facility] Address [address] [place] [address] Care Team Providers Care Junior Assistant Manager Name Role Phone Alma Delia Mejia MD Primary Care Provider [phone] Encounter Details Date Type Department Care Team (Latest Contact Info) Description 10/27/2017 14:09 EDT - 10/27/2017 23:59 EDT Hospital Encounter [facility] [address] [place] [address] Unknown, Provider, Discharge Disposition: Home or Self Care Social History Tobacco Use Types Packs/Day Years Used Date Smoking Tobacco: Never Assessed Comments Unknown Sex and Gender Information Value Date Recorded Sex Assigned at Not on file Legal Sex Female 18:37 EST Gender Identity Female 01/05/2019 9:42 EST Sexual Orientation Not on file documented as of this encounter Medications at Time of Discharge lamoTRIgine (LAMICTAL) 25 mg tablet 1 tab(s) orally taper up as directed. 02/19/2015 03/12/2019 documented as of this encounter Discharge Disposition Disposition Code Departure Means Destination Home or Self [place] documented in this encounter Plan of Treatment Not on file documented as of this encounter Visit Diagnoses Not on filedocumented in this encounter Care Teams Junior Assistant Manager Relationship Specialty Start Date End Date Alma Delia Mejia MD [address] [place] [address] PCP - General 07/09/10 documented as of this encounter
--- OUTSIDE RECORDS SUMMARY | 2024-01-05 20:09 | XMS_ITS | Encounter Summary ---
Author Organization [facility] Address [address] [place] [address] Care Team Providers Care Napper Fixer Name Role Phone Alma Delia Mejia MD Primary Care Provider [phone] Casi Rose HOOKER INSPECTOR Unavailable [phone] Reason for Visit * Reason Comments Other Encounter Details Date Type Department Care Team (Late st Contact Info) Description 06/08/2019 Refill [facility] Family Psychiatry [address] [place] [address] Jc Calle MD [address] [place] [phone] Other Social History Tobacco Use Types Packs/Day [...] TABLET BY MOUTH EVERY DAY 30 Tab 06/08/2019 07/14/2019 lamoTRIgine (LAMICTAL) 200 mg tablet TAKE 1 TABLET BY MOUTH EVERY DAY 30 Tab 06/08/2019 07/14/2019 documented in this encounter Miscellaneous Notes * Telephone Encounter - Gisela Pagan - 06/08/2019 1202 EDT Faye's patient Gianna is off today documented in this encounter Plan of Treatment Not on file documented as of this encounter Visit Diagnoses Not on filedocumented in this encounter Discontinued Medications Medication Sig Discontinue Reason Start Date End Da te lamoTRIgine (LAMICTAL) 200 mg tablet Take 1 Tab by mouth daily. 04/12/2019 06/08/2019 citalopram (CELEXA) 40 mg tablet Take 1 Tab by mouth daily. 04/12/2019 06/08/2019 documented as of this encounter Care Teams Napper Fixer Relationship Specialty Start Date End Date Alma Delia Mejia MD [address] [place] [address] PCP - General 07/09/10 Casi Rose NP [address] [phone] Physician Therapist Radiation Mental Health 12/06/19 05/05/20 documented as of this encounter
--- OUTSIDE RECORDS SUMMARY | 2024-01-05 20:09 | XMS_ITS | Encounter Summary ---
Author Organization [facility] Address [address] [place] [address] Care Team Providers Care Histotechnologist Name Role Phone Alma Delia Mejia MD Primary Care Provider [phone] Casi Rose FIRST LINE SUPERVISOR Unavailable [phone] Reason for Visit * Reason Comments Other Encounter Details Date Type Department Care Team (Late st Contact Info) Description 02/26/2020 Refill [facility] Family Psychiatry [address] [place] [address] Faye Zapien MD Other Social [...] on filedocumented in this encounter Care Teams Histotechnologist Relationship Specialty Start Date End Date Alma Delia Mejia MD [address] [place] [address] PCP - General 07/09/10 Casi Rose, FIRST LINE SUPERVISOR [address] [place] [phone] Physician Simulation Specialist Mental Health 12/06/19 3 documented as of this encounter
--- OUTSIDE RECORDS SUMMARY | 2024-01-05 20:09 | XMS_ITS | Encounter Summary ---
Author Organization [facility] Address [address] [place] [address] Care Team Providers Care Physical Scientist Name Role Phone Alma Delia Mejia MD Primary Care Provider [phone] Casi Rose CLASSIFICATION OFFICER Unavailable [phone] Reason for Visit * Reason Comments Other Encounter Details Date Type Department Care Team (Late st Contact Info) Description 03/09/2019 Refill [facility] Family Psychiatry [address] [place] [address] Mic Mayfield NP [address] [facility] [address] [place] [address] Other Social History Tobacco Use [...] TABLET BY MOUTH EVERY DAY 30 Tab 03/12/2019 04/12/2019 citalopram (CELEXA) 40 mg tablet TAKE 1 TABLET BY MOUTH EVERY DAY 30 Tab 03/12/2019 04/12/2019 documented in this encounter Miscellaneous Notes * Telephone Encounter - Gisela Pagan - 03/12/[address] Zapien's patient documented in this encounter Plan of Treatment Not on file documented as of this encounter Visit Diagnoses Not on filedocumented in this encounter Discontinued Medications Medication Sig Discontinue Reason Start Date End Da te lamoTRIgine (LAMICTAL) 25 mg tablet 1 tab(s) orally taper up as directed. Therapy completed 02/19/2015 03/12/2019 citalopram (CELEXA) 40 mg tablet TAKE 1 TABLET BY MOUTH ONCE DAILY 01/24/2019 03/12/2019 lamoTRIgine (LAMICTAL) 200 mg tablet TAKE 1 TABLET BY MOUTH ONCE DAILY 01/24/2019 03/12/2019 documented as of this encounter Care Teams Physical Scientist Relationship Specialty Start Date End Date Alma Delia Mejia MD [address] [place] [address] PCP - General 07/09/10 Casi Rose, JENY [address] [phone] Physician Penology Professor Mental Health 12/06/19 05/05/20 documented as of this encounter
--- OUTSIDE RECORDS SUMMARY | 2024-01-05 20:09 | XMS_ITS | Encounter Summary ---
Author Organization [facility] Address [address] [place] [address] Care Team Providers Care Tire Rebuilder Name Role Phone Alma Delia Mejia MD Primary Care Provider [phone] Encounter Details Date Type Department Care Team (Late st Contact Info) Description 09/19/2017 Historical Results Only [facility] Radiology Results [address] [place], [place] [phone] Nacho Sumner MD [address] [facility] [address] [place] [address] Social History Tobacco Use Types Packs/Day Years [...] Name Priority Date/Time Associated Diagnosis Comments XR WRIST LEFT 3 OR MORE VIEWS 09/19/2017 21:08 EDT documented in this encounter Results * XR WRIST LEFT 3 OR MORE VIEWS (09/19/2017 21:08 EDT) Anatomical Region Laterality Modality Upper Extremities Left Other 09/19/2017 21:0 8 EDT Narrative 09/19/2017 21:11 EDT ? EXAM: RADIOLOGY/WRIST LEFT 3 + VIEWS ?EX. D/ (1645) ? CLINICAL INFORMATION: ? M25.532 LEFT WRIST PAIN ? INDICATION: M25.532 LEFT WRIST PAIN LV NEW ISSUE LEFT WRIST AND LEFT ? SHOULDER PAIN ? TECHNIQUE: 4 views left wrist. ? COMPARISON: None. ? FINDINGS: Mild ulna positive variance is present. No acute fractures ? seen. The distal radius and ulna appear intact. No scaphoid injury is ? visible. The scapholunate interosseous interval is not widened. ? IMPRESSION: ? 1. Mild ulna positive variance. ? 2. No scapholunate widening detected. ? REPORT SIGNED IN OTHER VENDOR SYSTEM 09/19/2017 ?Reported By: Ze Flores MD ? CC: ? Transcribed Date/Time: 09/19/2017 (2111) ? Grape Cutter: ? Printed Date/Time: 08/05/2018 (9181) ? PAGE 1 ? Signed Report ? Procedure Note Ze Flores MD - 12/21/2018 EXAM: RADIOLOGY/WRIST LEFT 3 + VIEWS EX. D/ (1645) CLINICAL INFORMATION: M25.532 LEFT WRIST PAIN INDICATION: M25.532 LEFT WRIST PAIN LV NEW ISSUE LEFT WRIST ANDLEFT SHOULDER PAIN TECHNIQUE: 4 views left wrist. COMPARISON: None. FINDINGS: Mild ulna positive variance is present. No acutefractures seen. The distal radius and ulna appear intact. No scaphoid injuryis visible. The scapholunate interosseous interval is not widened. IMPRESSION: 1. Mild ulna positive variance. 2. No scapholunate widening detected. REPORT SIGNED IN OTHER VENDOR SYSTEM 09/19/2017 Reported By: Ze Flores MD CC: Transcribed Date/Time: 09/19/2017 (6414) Grape Cutter: Printed Date/Time: 08/05/2018 (2283) PAGE 1 Signed Report us Nacho Sumner MD IMG DIAGNOSTIC IMAGING O RDERABLES Final Result documented in this encounter Visit Diagnoses Not on filedocumented in this encounter Care Teams Tire Rebuilder Relationship Specialty Start Date End Date Alma Delia Mejia MD [address] [facility] [place] [address] PCP - General 07/09/10 documented as of this encounter
--- OUTSIDE RECORDS SUMMARY | 2024-01-05 20:09 | XMS_ITS | Encounter Summary ---
Author Organization [facility] Address [address] [place] [address] Care Team Providers Care Director China Name Role Phone Alma Delia Mejia MD Primary Care Provider Casi Rose APPLIER Unavailable [phone] Reason for Visit * Reason Onset Date Comments Medications Refill 12/24/2019 citalopram 40 mg Encounter Details Date Type Department Care Team (Late st Contact Info) Description 01/25/2020 Refill [facility] Family Psychiatry [address] [place] [address] Rosalba Hernandez RN [address] [facility] [place], [place] [phone] Medications Refill (citalopram 40mg ) Social History Tobacco Use Types Packs/Day Years [...] End Date citalopram (CELEXA) 40 mg tablet Take 1 Tab by mouth daily. 30 Tab 1 12/24/2019 documented in this encounter Miscellaneous Notes * Telephone Encounter - Rosalba Hernandez RN - 01/25/2020 0823 EST citalopram 40mg documented in this encounter Plan of Treatment Not on file documented as of this encounter Visit Diagnoses Not on filedocumented in this encounter Discontinued Medications Medication Sig Discontinue Reason Start Date End Da te citalopram (CELEXA) 40 mg tablet TAKE 1 TABLET BY MOUTH EVERY DAY Reorder 09/17/2019 01/25/2020 documented as of this encounter Care Teams Director China Relationship Specialty Start Date End Date Alma Delia Mejia MD [address] [place] [phone] PCP - General 07/09/10 Casi Rose APPLIER [address] [phone] Physician Silvering Applicator Mental Health 12/06/19 05/05/20 documented as of this encounter
--- OUTSIDE RECORDS SUMMARY | 2024-01-05 20:09 | XMS_ITS | Encounter Summary ---
Author Organization [facility] Address [address] [place] [address] Care Team Providers Care Roofing Tile Sorter Name Role Phone Unavailable Primary Care Provider Unavailabl e Encounter Details Date Type Department Care Team (Late st Contact Info) Description 05/12/2005 Before PRISM Converted Visit (Maple) [facility] - Maple conversion [address] [place] [address] Shanelle Álvarez MD [address] [facility] [place] [address] Social History Tobacco Use Types Packs/Day Years Used Date Smoking Tobacco: Never Assessed Comments Unknown Sex and Gender Information Value Date Recorded Sex Assigned at Not on file Legal Sex Female 18:37 EST Gender Identity Female 01/05/2019 9:42 EST Sexual Orientation Not on file documented as of this encounter Consult Notes * Shanelle Álvarez - 01/24/2009 1128 EST CONSULTATION - 05/12/2005 PROBLEM 2: Rule out Raynaud's. SUBJECTIVE: Alma Delia is being referred here by her primary care provider Dr. Mira Epps for evaluation of some color changes in her feet, which have been present for several years. Apparently, around age 6, she was noted to have episodes where both feetwould turn quite red and be painful. This is noted to occur more often when exposed to the cold. She was seen in the emergency room at one time with this problem and the only laboratory work I have is a positive OLEG with no titer and a sedimentation rateof 18. This was done many years ago. The exact etiology of this problem was never found. She was thought to possibly have some form of vasculitis. She has been followed since that time and, apparently, the frequency of these episodes have increased and theparents saw Dr. Epps for an opinion as to what the etiology was. I am having difficulty getting the frequency of occurrence of these symptoms from Alma Delia and her parents, but her last episode was about a month ago. It sounds like she may have them monthly or perhaps more frequently. They can last anywhere from 1/2 hour to several hours. A typical episode begins with pain in her feet and they are quite red and swollen. This, again,extends from her toes up to above her ankle. The predominant color is red.They will sometimes startto look more mottled after a while and then everything totally resolves. She has never had any ulcerative lesions. They do not feel numb but hurt. Once the episode is over, her feet feel fine. She has never had any issues with herhands or other parts of her body turning blue or being numb on cold exposure. She denies any history of mouth sores, unexplained fevers, photophobia, photosensitivity, hair loss, joint pain, chest pain, abdominal pain, vomiting, diarrhea or shortness of breath. She has never had any inflammatory eye disease diagnosed. She has never had a urinary tract infection. She has had no headaches or history of a tick bite. She is fairly active horseback riding on a daily basis. Sometimes, her feet bother her while horseback riding and sometimes they do not. She does complain more in the cold weather but gets episodes in the summer as well. There is no history of psoriasis. Her immunizations are up to date and none given recently. Her current medications include Reina for environmental allergies, Zoloft 100 mg a day, which shehas been on for several years. She is also on control pills, multivitamins, and takes ibuprofen as needed for discomfort and it is sometimes helpful. Her only additional problem is her left knee. It sounds like she had a subluxation, perhaps, of herpatella a few years ago. She had arthroscopic surgery at that time. Her ultimate diagnosis, I believe, was osteochondritis dissecans. Since that time, she has had some instability and weakness in her knee. She is seeing an orthopedist at [facility], I believe, later this week. She is not notably stiff in the morning. She otherwise has been healthy. 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 She was a full-term . She has 4 half siblings, 1 brother and 3 sisters. Her half brother has a seizure disorder. There is no family history of inflammatory bowel disease, systemic lupus, rheumatoid arthritis, Lyme disease or psoriasis. Mom has a history of thyroid diseaseand osteoarthritis. There is a paternal grandmother, actually, who had rheumatoid arthritis. Mom is 49. Dad is 52 and is a mechanical fitter and he is healthy. OBJECTIVE: On exam, Alma Delia looks well. Height is 153.4 cm. Weight is 59.2 kg. Blood pressure 120/67.I should note that her menses are fairly regular now, but she did have very heavy menses before going on the pill. There is no history of any clotting disorders in the family. HEENT exam is unremarkable. Heart, lungs and abdomen are benign. Her thyroid is somewhat palpable, not significantly, but perhaps a bit enlarged. C-spine motion is full. Upper extremity joints range well with no pain on range or swelling or limitation noted. Hips range well. Her knee is not swollen. She does have some quads atrophy on the left associated with her knee surgery and continuing problems on the left side. She is quite hypermobile and hyperextended her knees and elbows easily. Ankles and feet are fine. She does complain of a bit of discomfort on squeezing both feet, but this seems fairly minimal. No swelling is noted. Back is straight and she is able to touch her toes easily. Pulses are equal, both feetand in her groin, at her wrists and antecubital fossa. Nail bed capillary appeared normal on exam. ASSESSMENT: At this time, this does not sound like Raynaud's. She begins red, which is usually the final stage of Raynaud's. Raynaud's does not occur above the ankle like that and the lack of involvement of hands makes it suspicious that this is not Raynaud's. Other considerationswould be some problem such as erythromelalgia but usually extremities are burning and painful, and she really seems todescribe this as cold associated. Erythromelalgia usually causes sweating and warmth to the extremity. I suppose some clotting disorder is possible but, again, the intermittent nature is against this. PLAN: I ordered some additional laboratory tests, including a CBC to rule out polycythemia, some coags, including anticoagulant lipid antibodies, liver functions and thyroid function tests. I suggested that we speak again after the labs are back. At this point, whatever is going on does not seem mirtha a significant impairment of the circulation that she has never developed any ulcerative lesions,peeling of skin, etc., and I reassured the parents that was not likely to be present in the future.I described to them why I did not think this is Raynaud's. We will discuss the followup of labs on the phone in a week or two. Signed by Shanelle Álvarez MD 05/19/2005 15:03 ANSHUL [facility] of Pediatric RheumatologyShanelle Álvarez MD Shanelle Álvarez MD Division of Pediatric Rheumatology - Shanelle Álvarez MD P - o3 Job ID: [id number] Document ID: [id number] cc: Mira Epps MD documented in this encounter Plan of Treatment Not on file documented as of this encounter Visit Diagnoses Not on filedocumented in this encounter
--- OUTSIDE RECORDS SUMMARY | 2024-01-05 20:09 | XMS_ITS | Encounter Summary ---
Author Organization [facility] Address [address] [place] [address] Care Team Providers Care Netsuite Consultant Name Role Phone Alma Delia Mejia MD Primary Care Provider [phone] Reason for Visit * Reason Onset Date Comments Appointment Related 09/15/2020 Encounter Details Date Type Department Care Team (Late st Contact Info) Description 09/15/2020 Telephone [facility]cology - [facility] [address], [place] [id number] Alma Delia Mejia MD [address] [place] [phone] Appointment Related Social History Tobacco Use Types [...] encounter Miscellaneous Notes * Telephone Encounter - Tavia Grant - 09/15/2020 1131 EDT 2 x call to schedule in [facility] for patient to return call to [phone] / Tavia intake/BCC to schedule. Tavia Grant 09/15/20 1129 documented in this encounter Plan of Treatment Not on file documented as of this encounter Visit Diagnoses Not on filedocumented in this encounter Care Teams Netsuite Consultant Relationship Specialty Start Date End Date Alma Delia Mejia MD [address] [place] [address] PCP - General 07/09/10 documented as of this encounter
--- OUTSIDE RECORDS SUMMARY | 2024-01-05 20:09 | XMS_ITS | Encounter Summary ---
Author Organization [facility] Address [address] [place] [address] Care Team Providers Care Backbreaker Name Role Phone Alma Delia Mejia MD Primary Care Provider [phone] Encounter Details Date Type Department Care Team (Late st Contact Info) Description 07/30/2017 Historical Results Only [facility] Radiology Results [address] [place], [place] [address] Subha Ibarra PA-C [address] [facility] [address] [place] [address] Social History Tobacco Use Types [...] Procedure Name Priority Date/Time Associated Diagnosis Comments MR KNEE WO CONTRAST LEFT 07/30/2017 7:19 EDT documented in this encounter Results * MR KNEE WO CONTRAST LEFT (07/30/2017 7:19 EDT) Anatomical Region Laterality Modality Lower Extremities Left Other 07/30/2017 7:19 EDT Narrative 07/30/2017 7:23 EDT ? EXAM: MAGNETIC RESONANCE IMAGING/KNEE LT ??EX. D/ (1429) ? CLINICAL INFORMATION: ? M25.562 ACUTE PAIN OF LEFT KNEE ? R/O MENISCAL DAMAGE VS OTHER PATHOLOGY AFTER ? ALTERCATION ? EXAM/TECHNIQUE: ? KNEE LT W/O CONTRAST ??07/29/2017 2:29 PM ? HISTORY: ??M25.562 ACUTE PAIN OF LEFT KNEE, R/O MENISCAL DAMAGE VS ? OTHER PATHOLOGY AFTER, ALTERCATION ? COMPARISON: None. ? FINDINGS: ? Cruciate Ligaments: ? ACL: There is a partial, low-grade tear involving the posterolateral ? bundle of the anterior cruciate ligament at the tibial insertion ? noted on sagittal series 5 image 13 coronal image 14. The majority of ? the ACL fibers are intact and maintains normal orientation. Moderate ? focal synovitis is noted adjacent to the ACL insertion ? PCL: Moderate focal hyperintensity of the midportion of the posterior ? cruciate ligament is also present (sagittal series 5 image 11), ? compatible with a low-grade injury. A small ganglion cyst arises from ? the posterior cruciate ligament. ? Medial Compartment: ? Medial Meniscus: There is mild intrasubstance degeneration of the ? posterior horn. Minimal undersurface fraying is noted (sagittal ? series 5 image 8), but no discrete linear tear is evident. ? Cartilage: Preserved. ? Medial Supporting Structures: Intact ? Lateral Compartment: ? Lateral Meniscus: Mild intrasubstance degeneration of the body ? segment. ? Cartilage: Mild surface regularly noted over the inner aspect of the ? lateral femoral condyle. ? Lateral Supporting Structures: Intact ? Patellofemoral Compartment: ? Extensor Mechanism: Intact. ? Cartilage and bone and retinacula: There is a focal full-thickness ? chondral loss over the inferior patella near the junction of the ? median ridge and lateral patellar facet (sagittal series 5 image 14 ? axial series 3 image 16 which measures approximately 5 mm). There is ? a suspected adjacent osteochondral body) sagittal series 5 image 17). ? Bone marrow edema is noted both over the medial aspect of the patella ? and lateral aspect of the lateral femoral condyle in a pattern ? compatible with prior transient lateral dislocation. Additionally, ? MPFL appears moderately attenuated and wavy, especially near the ? femoral insertion (axial series 3 image 16). ? Bones: ??In addition to the bone marrow edema described in the ? patellofemoral section, there is also bone marrow edema at the ? posterior aspect of the medial tibial plateau. ? PAGE 1 ? Signed Report ? (CONTINUED) ? Joint Space: ??Suspected 5 mm osteochondral body adjacent to the ? inferior aspect of the patella (sagittal series 5 image 12). There is ? a trace joint effusion. Moderate focal synovitis is noted adjacent to ? the tibial insertion of the ACL. ? Extra-articular Soft Tissues: ??Soft tissues about the knee are ? unremarkable. ? IMPRESSION: Left Knee MRI ? 1. Findings suggestive of prior transient lateral patellar ? dislocation. There is mild bone marrow edema at the medial aspect of ? the patella and lateral aspect lateral femoral condyle and there is a ? focal osteochondral defect on the inferior patella near the median ? ridge with an adjacent osteochondral body. The MPFL appears ? attenuated and lax. ? 2. Low-grade injury involving the posterolateral bundle fibers of the ? anterior cruciate ligament with surrounding synovitis. Bone marrow ? edema over the posterior aspect of the medial tibial plateau may ? reflect a contusion from the time of ACL injury. ? 3. Low-grade injury to the posterior cruciate ligament. ? REPORT SIGNED IN OTHER VENDOR SYSTEM 07/30/2017 ?Reported By: Ze Flores MD ? CC: Subha Ibarra ? Transcribed Date/Time: 07/30/2017 (0723) ? Thread Inspector: ? Printed Date/Time: 08/04/2018 (1607) ? PAGE 2 ? Signed Report ? Procedure Note Ze Flores MD - 12/21/2018 EXAM: MAGNETIC RESONANCE IMAGING/KNEE LT EX. D/ (1429) CLINICAL INFORMATION: M25.562 ACUTE PAIN OF LEFT KNEE R/O MENISCAL DAMAGE VS OTHER PATHOLOGY AFTER ALTERCATION EXAM/TECHNIQUE: KNEE LT W/O CONTRAST 07/29/2017 2:29 PM HISTORY: M25.562 ACUTE PAIN OF LEFT KNEE, R/O MENISCAL DAMAGE VS OTHER PATHOLOGY AFTER, ALTERCATION COMPARISON: None. FINDINGS: Cruciate Ligaments: ACL: There is a partial, low-grade tear involving theposterolateral bundle of the anterior cruciate ligament at the tibial insertion noted on sagittal series 5 image 13 coronal image 14. The majorityof the ACL fibers are intact and maintains normal orientation.Moderate focal synovitis is noted adjacent to the ACL insertion PCL: Moderate focal hyperintensity of the midportion of theposterior cruciate ligament is also present (sagittal series 5 image 11), compatible with a low-grade injury. A small ganglion cyst arisesfrom the posterior cruciate ligament. Medial Compartment: Medial Meniscus: There is mild intrasubstance degeneration of the posterior horn. Minimal undersurface fraying is noted (sagittal series 5 image 8), but no discrete linear tear is evident. Cartilage: Preserved. Medial Supporting Structures: Intact Lateral Compartment: Lateral Meniscus: Mild intrasubstance degeneration of the body segment. Cartilage: Mild surface regularly noted over the inner aspect ofthe lateral femoral condyle. Lateral Supporting Structures: Intact Patellofemoral Compartment: Extensor Mechanism: Intact. Cartilage and bone and retinacula: There is a focal full-thickness chondral loss over the inferior patella near the junction of the median ridge and lateral patellar facet (sagittal series 5 image 14 axial series 3 image 16 which measures approximately 5 mm). Thereis a suspected adjacent osteochondral body) sagittal series 5 image17). Bone marrow edema is noted both over the medial aspect of thepatella and lateral aspect of the lateral femoral condyle in a pattern compatible with prior transient lateral dislocation. Additionally, MPFL appears moderately attenuated and wavy, especially near the femoral insertion (axial series 3 image 16). Bones: In addition to the bone marrow edema described in the patellofemoral section, there is also bone marrow edema at the posterior aspect of the medial tibial plateau. PAGE 1 Signed Report (CONTINUED) Joint Space: Suspected 5 mm osteochondral body adjacent to the inferior aspect of the patella (sagittal series 5 image 12). Thereis a trace joint effusion. Moderate focal synovitis is noted adjacentto the tibial insertion of the ACL. Extra-articular Soft Tissues: Soft tissues about the knee are unremarkable. IMPRESSION: Left Knee MRI 1. Findings suggestive of prior transient lateral patellar dislocation. There is mild bone marrow edema at the medial aspectof the patella and lateral aspect lateral femoral condyle and there melanie focal osteochondral defect on the inferior patella near the median ridge with an adjacent osteochondral body. The MPFL appears attenuated and lax. 2. Low-grade injury involving the posterolateral bundle fibers ofthe anterior cruciate ligament with surrounding synovitis. Bone marrow edema over the posterior aspect of the medial tibial plateau may reflect a contusion from the time of ACL injury. 3. Low-grade injury to the posterior cruciate ligament. REPORT SIGNED IN OTHER VENDOR SYSTEM 07/30/2017 Reported By: Ze Flores MD CC: Subha Ibarra Transcribed Date/Time: 07/30/2017 (0723) Thread Inspector: Printed Date/Time: 08/04/2018 (2799) PAGE 2 Signed Report Subha Ibarra PA-C IMG MRI ORDERABLES F inal Result documented in this encounter Visit Diagnoses Not on filedocumented in this encounter Care Teams Backbreaker Relationship Specialty Start Date End Date Alma Delia Mejia MD [address] [place] [address] PCP - General 07/09/10 documented as of this encounter
--- OUTSIDE RECORDS SUMMARY | 2024-01-05 20:09 | XMS_ITS | Encounter Summary ---
Author Organization [facility] Address [address] [place] [address] Care Team Providers Care Boilermaker Assembly And Erection Name Role Phone Alma Delia Mejia MD Primary Care Provider [phone] Casi Rose CRIME PREVENTION WORKER Unavailable Encounter Details Date Type Department Care Team (Late st Contact Info) Description 10/05/2019 Lab Requisition [facility] Pathology & Laboratory Medicine - [facility] [address] [place] [address] Alma Delia Mejia MD [address] [place] [phone] Encounter for screening for malignant neoplasm of cervix; Encounter for general adult medical examination without abnormal findings Social History Tobacco Use Types Packs/Day Years [...] Name Priority Date/Time Associated Diagnosis Comments PAP TEST Today 10/03/2019 8:15 EDT Encounter for screening for malignant neoplasm of cervix Encounter for general adult medical examination without abnormal findings HPV DNA DETECTION WITH GENOTYPING, PCR Today 10/03/2019 8:15 EDT Encounter for screening for malignant neoplasm of cervix Encounter for general adult medical examination without abnormal findings documented in this encounter Results * HUMAN PAPILLOMAVIRUS (HPV) DETECTION-HIGH RISK TYPES (10/03/2019 8:15 EDT) HPV other High Risk types, PCR Negative Negative 10/20/2019 1:26 EDT [facility] Comment:No E6 or E7 mRNA is detected from HPV types 16,18,31,33,35,39,45,51,52,56,58,59,66, and 68 by physicians assistant mediated amplification. Papanicolaou smear specimen (specimen) CERVIX UTERI STRUCTURE / Unknown 10/03/2019 8:15 EDT 10/18/2019 13:50 EDT us Alma Delia Mejia MD MICROBIOLOGY - GENERAL ORDERAB LES Final Result [facility] [address] [place] [phone] * PAP TEST (10/03/2019 8:15 EDT) Specimens A. Cervix and/or Endocervix , ThinPrep Imaging System with Manual Evaluation 10/20/2019 1:26 EDT [facility] Specimen Adequacy Satisfactory for Evaluation - transformation zone component present 10/20/2019 1:26 EDT [facility] General Categorization Negative for intraepithelial lesion or malignancy 10/20/2019 1:26 EDT [facility] Attestation . 10/20/2019 1:26 EDT [facility] at 0126 HPV The result for the Human Papillomavirus (HPV) Detection-High Risk Types is Negative. No E6 or E7 mRNA is detected from HPV types 16,18,31,33,35,39 ,45,51,52,56,58,5 9,66, and 68 by physicians assistant mediated amplification.Edwina ting was performed on specimen [id number] and was resulted on 10/19/2019 2216 EDT by DAE, LAB INSTRUMENT RESULTS IN 10/20/2019 1:26 EDT [facility] Scanned Images 10/20/2019 1:26 EDT [facility] Papanicolaou smear specimen (specimen) CERVIX UTERI STRUCTURE / Unknown 10/03/2019 8:15 EDT 10/05/2019 14:55 EDT Alma Delia Mejia MD PATHOLOGY ORDERABLES Final Res ult [facility] [address] [place] [address] documented in this encounter Visit Diagnoses Diagnosis Encounter for screening for malignant neoplasm of cervix Screening for malignant neoplasm of the cervix Encounter for general adult medical examination without abnormal findings Unspecified general medical examination documented in this encounter Care Teams Boilermaker Assembly And Erection Relationship Specialty Start Date End Date Alma Delia Mejia MD [address] [place] [phone] PCP - General 07/09/10 Casi Rose NP [address] [phone] Physician Educational Program Assistant Mental Health 12/06/19 05/05/20 documented as of this encounter
--- OUTSIDE RECORDS SUMMARY | 2024-01-05 20:09 | XMS_ITS | Encounter Summary ---
Author Organization [facility] Address [address] [place] [address] Care Team Providers Care Python Java Developer Name Role Phone Alma Delia Riley MD Primary Care Provider [phone] Encounter Details Date Type Department Care Team (Late st Contact Info) Description 03/10/2016 Results Only [facility]- PRISM [phone] Alma Delia Riley MD [address] [place] [phone] Social History Tobacco Use Types Packs/Day [...] Diagnosis Comments PAP TEST- RESULT ONLY Routine 03/10/2016 0:00 EST documented in this encounter Results * PAP TEST- RESULT ONLY (03/10/2016 0:00 EST) Pathology Report: CYTOPATHOLOGY REPORT Reports generated via electronic interface contain original data; however they are lacking the format of the original report. Caution should be taken when reading/interpreti ng unformatted reports. Name: ? ALEXIS ALMA DELIA ? Accession #: ? [id number] : ? 1990 (Age: 26) ??F ?Collect Date: ? 03/10/2016 Location: ? [facility] ? Receive Date: ? 03/11/2016 Provider: ?ALMA DELIA RILEY MD Copy to: ? Specimen/Source: ?Pap Test, Cervix, ThinPrep Imaging System with manual evaluation Last Menstrual Period: ? Hormonal/Contracep tive Status: ? Oral contraceptives Previous Gynecologic Pathology: ? LSIL ? SPECIMEN ADEQUACY ? Satisfactory for Evaluation - transformation zone component present GENERAL CATEGORIZATION ? Negative for Intraepithelial Lesion or Malignancy ? Document reviewed and electronically signed by: ? RODOLFO Brownlee(ASCP) ? Report Date: ??03/17/2016 13:05 End of Report [facility] 03/10/2016 03/11/2016 us Alma Delia Riley MD PATHOLOGY ORDERABLES Final Res ult [facility] [address] [place] [address] documented in this encounter Visit Diagnoses Not on filedocumented in this encounter Care Teams Python Java Developer Relationship Specialty Start Date End Date Alma Delia Riley MD [address] [place] [phone] PCP - General 07/09/10 documented as of this encounter
--- OUTSIDE RECORDS SUMMARY | 2024-01-05 20:09 | XMS_ITS | Encounter Summary ---
Author Organization [facility] Address [address] [place] [address] [address] Team [address] Care [address] Project Manager Name Role Phone Alma Delia Mejia MD Primary Care Provider [phone] Reason for Referral * Radiology Services (Routine) - New Request Specialty Diagnoses / Procedures Referred By Trang rizzo Referred To Contact Diagnoses Discharge from left nipple Procedures MA BREAST DIAGNOSTIC MARQUITA BILATERAL Alma Delia Mejia MD [address] [place] [address] Phone: tel: fax: Referral ID Status Reason Start Date Expiration Date V isits Requested Visits Authorized [id number] New Request 08/13/2020 1 1 Reason for Visit * Radiology Services (Routine) - New Request Specialty Diagnoses / Procedures Referred By Trang rizzo Referred To Contact Diagnoses Discharge from left nipple Procedures MA BREAST DIAGNOSTIC MARQUITA BILATERAL Alma Delia Mejia MD [address] [place] [address] Phone: tel: fax: Referral ID Status Reason Start Date Expiration Date V isits Requested Visits Authorized [id number] New Request 08/13/2020 1 1 Encounter Details Date Type Department Care Team (Latest Contact Info) Description 09/05/2020 10:46 EDT - 09/05/2020 12:46 EDT Hospital Encounter [facility] Breast Imaging Mammography - [address] [address] Discharge from left nipple Discharge Disposition: Home [...] Procedure Name Priority Date/Time Associated Diagnosis Comments MA BREAST DIAGNOSTIC MARQUITA BILATERAL Routine 09/05/2020 11:23 EDT Discharge from left nipple documented in this encounter Results * MA BREAST DIAGNOSTIC MARQUITA BILATERAL (09/05/2020 11:23 EDT) Anatomical Region Laterality Modality Breast Bilateral Mammography 09/05/2020 13:2 4 EDT Narrative 09/05/2020 13:24 [...] were discussed with the patient by the silverware washer at the time of the exam. Overall assessment: BI-RADS Category Assessment 2: Benign Findings. These results will be communicated to your patient via a lay letter from Radiology. us Alma Delia Mejia MD IMG MAMMOGRAPHY ORDERABLES Fin al Result documented in this encounter Visit Diagnoses Diagnosis Discharge from left nipple documented in this encounter Care Teams Rd Project Manager Relationship Specialty Start Date End Date Alma Delia Mejia MD [address] [place] [phone] PCP - General 07/09/10 documented as of this encounter
--- OUTSIDE RECORDS SUMMARY | 2024-01-05 20:09 | XMS_ITS | Encounter Summary ---
Author Organization [facility] Address [address] [place] [address] Care Team Providers Care Frame Sample And Pattern Supervisor Name Role Phone Alma Delia Mejia MD Primary Care Provider [phone] Casi Rose PROFESSIONAL NURSING TUTOR Unavailable [phone] Reason for Visit * Reason Comments Other Encounter Details Date Type Department Care Team (Late st Contact Info) Description 01/24/2019 Refill [facility] Family Psychiatry [address] [place] [address] Faye Zapien MD Other Social [...] Da te lamoTRIgine (LAMICTAL) 200 mg tablet 1 tab(s) orally a day Reorder 01/24/2019 documented as of this encounter Care Teams Frame Sample And Pattern Supervisor Relationship Specialty Start Date End Date Alma Delia Mejia MD [address] [place] [address] PCP - General 07/09/10 Casi Rose NP [address] [phone] Physician Sql Ssrs Developer Mental Health 12/06/19 05/05/20 documented as of this encounter
--- OUTSIDE RECORDS SUMMARY | 2024-01-05 20:09 | XMS_ITS | Encounter Summary ---
Author Organization [facility] Address [address] [place] [address] Care Team Providers Care Planning Associate Name Role Phone Alma Delia Mejai MD Primary Care Provider Encounter Details Date Type Department Care Team (Late st Contact Info) Description 02/22/2011 Historical Results Only Health system Lab - [place] [address] [place] [phone] Monik Shipman MD [address] [place] [address], [address] [place] [address] Social History Tobacco Use Types [...] Priority Date/Time Associated Diagnosis Comments PAP TEST Routine 02/22/2011 documented in this encounter Results * PAP TEST (02/22/2011) 02/22/2011 02/22/2011 17: 22 EST Narrative [facility] - 02/25/2011 11:41 EST ----- ------- Name: ALMA DELIA ESPINOZA ? : 86 ?Age/Sex: 29/F ?Unit#: [id number] ? Loc: AGO ? Status: REG POV ?? Reg Date: 02/22/11 ? Pt.Phone Number: ? ----- ------- Specimen: [id number] ? STATUS: SOUT ?Spec Date:02/22/11 ? Physician Copies: ?Monik Shipman MD ? Tissues: ? Cervical/Endo Pap ?Faye Zapien MD ? CPT: 43635 ?? Units: ??1 ----- ------- ? CYTOLOGY DIAGNOSIS SPECIMEN ADEQUACY: ?Satisfactory for evaluation. Transformation zone component present. GENERAL CATEGORIZATION: ?Negative for Intraepithelial Lesion or Malignancy DESCRIPTIVE DIAGNOSIS: ? Negative for Intraepithelial Lesion or Malignancy. RECOMMENDATIONS/COMMENTS: ?None. ----- ------- ORDER QUERIES: LMP: 02/17/11 ??- ? N Post ? N ??PREVIOUS ATYPICAL: Y BCP/HRT? Y Rad Rx? N IUD? N ??PAP PLUS HPV? N ??REFLEX TO HR-HPV IF ASCUS ?? REFLEX TO HPV 16/18 IF HPV POS/PAP NEG ?? HPV REGARDLESS?RFLX HPV IF LSIL ?? IF ASCUS DO HPV? Y Signed Zuleika Carbajal CT(ASCP) 02/25/11 By the signature above, the attending physician certifies that he/she has personally conducted a gross and/or microscopic examination of the described specimens and rendered or confirmed the above diagnosis. Test Performed by [facility], [address] [address] Director Revenue: Daisy Ramirez MD PHD ----- ------- us Monik Shipman MD PATHOLOGY ORDERABLES Final Resu lt [facility] documented in this encounter Visit Diagnoses Not on filedocumented in this encounter Care Teams Planning Associate Relationship Specialty Start Date End Date Alma Delia Mejia MD [address] [place] [phone] PCP - General 07/09/10 documented as of this encounter
--- OUTSIDE RECORDS SUMMARY | 2024-01-05 20:09 | XMS_ITS | Encounter Summary ---
Author Organization [facility] Address [address] [place] [address] Care Team Providers Care Powerbuilder Name Role Phone Alma Delia Mejia MD Primary Care Provider [phone] Reason for Visit * Reason Onset Date Comments Appointment Related 09/11/2020 Encounter Details Date Type Department Care Team (Late st Contact Info) Description 09/11/2020 Telephone [facility] Surgical Oncology - [facility] [address] [place], [place] [address] Alma Delia Mejia MD [address] [place] [phone] Appointment Related Social History Tobacco Use [...] * Telephone Encounter - Tavia Grant - 09/11/2020 1133 EDT 1 x call to patient: [facility] for patient to return call to Tavia at the [facility] for scheduling. Tavia Grant 09/11/20 1132 documented in this encounter Plan of Treatment Not on file documented as of this encounter Visit Diagnoses Not on filedocumented in this encounter Care Teams Powerbuilder Relationship Specialty Start Date End Date Alma Delia Mejia MD [address] [place] [address] PCP - General 07/09/10 documented as of this encounter
--- OUTSIDE RECORDS SUMMARY | 2024-01-05 20:09 | XMS_ITS | Encounter Summary ---
Author Organization [facility] Address [address] [place] [address] Care Team Providers Care Refinisher Name Role Phone Unavailable Primary Care Provider Unavailabl e Encounter Details Date Type Department Care Team (Late st Contact Info) Description 05/12/2005 9:24 EST Hospital Encounter [facility] [address] [place] [address] Shanelle Álvarez MD [address] [place] [address] Social History Tobacco Use Types Packs/Day Years [...] Procedure Name Priority Date/Time Associated Diagnosis Comments URINE CULTURE IF POSITIVE Routine 05/12/2005 11:31 EST URINE CHEMICAL (DIP) & SEDIMENT (MICRO) WITHOUT REFLEX TO CULTURE Routine 05/12/2005 11:31 EST PHOSPHOLIPID ANTIBODY Routine 05/12/2005 11:30 EST PTT Routine 05/12/2005 11:30 EST SED RATE Routine 05/12/2005 11:30 EST PROTIME Routine 05/12/2005 11:30 EST COMPLETE BLOOD COUNT AND DIFFERENTIAL Routine 05/12/2005 11:30 EST ANTI NUCLEAR AB (OLEG), IFA Routine 05/12/2005 11:30 EST TSH Routine 05/12/2005 11:30 EST T4 FREE Routine 05/12/2005 11:30 EST VITAMIN B12 Routine 05/12/2005 11:30 EST HEPATIC FUNCTION PANEL (ALB,ALK PHOS,ALT,AST,DBIL,TOT IDRIS,TOT PROT) Routine 05/12/2005 11:30 EST BACTERIAL CULTURE, URINE Routine 05/12/2005 11:16 EST documented in this encounter Results * (ABNORMAL) UA WITH MICROSCOPIC (05/12/2005 11:31 EST) Color, UA Yellow [facility] Clarity, UA Clear [facility] Glucose, UA Norm NORM [facility] Bilirubin, UA Neg NEG [facility] Ketones, UA Neg NEG [facility] Specific [place], Urine >1.030(H) 1.005 - 1.02 [facility] Blood, UA Mod(A) NEG [facility] pH, UA 6.0 5.0 - 9.0 [facility] Protein, UA Neg NEG [facility] Urobilinogen, UA Norm NORM mg/dL [facility] Nitrite, UA Neg NEG [facility] Leuk Esterase Neg NEG [facility] WBC, UA less than 1 0 - 5 /HPF [facility] RBC, UA 1 to 5 0 - 5 /HPF [facility] Squam Epithel, UA Frequent(A) NS /HPF [facility] Renal Epithel, UA None seen NS /HPF [facility] Bacteria, UA None seen NS /HPF [facility] Crystals, UA None seen /HPF [facility] Hyaline Casts, UA 2 to 10 Hyaline /LPF [facility] UA Comment Microscopic results are unreliable on urines unrefrig >2hrs or refrig >8hrs. [facility] Mucus, UA Present [facility] Refractometer SG,Urine 1.021 1.005 - 1.02 [facility] Comment:Refractometer specif ic gravity 05/12/2005 11:3 1 EST 05/12/2005 11:33 EST us Shanelle Álvarez MD URINALYSIS ORDERABLES Final Result Performing Organization Address [facility] Co de Phone Number [facility] [address] [place] [address] * CULTURE IF UA POSITIVE (05/12/2005 11:31 EST) Pathologist [facility] Culture if Indicated Culture indicated by urinalysis results. [facility] 05/12/2005 11:3 1 EST 05/12/2005 11:33 EST us Shanelle Álvarez MD MICROBIOLOGY - GENERAL ORDE RABLES Final Result Performing Organization Address [facility] Co de Phone Number [facility] [address] [place] [address] * TSH (05/12/2005 11:30 EST) Pathologist [facility] TSH Sample quantity insufficient for testing. 0.50 - 5.00 uIU/ml [facility] 05/12/2005 11:3 0 EST 05/12/2005 11:32 EST us Shanelle Álvarez MD CHEMISTRY & BLOOD GAS ORDER GHASSAN Final Result Performing Organization Address [facility] Co de Phone Number [facility] [address] [place] [address] * (ABNORMAL) SED. RATE:WESTERGREN (05/12/2005 11:30 EST) Sed. Rate [place] 21(H) 0 - 20 mm/hr [facility] 05/12/2005 11:3 0 EST 05/12/2005 11:32 EST us Shanelle Álvarez MD HEMATOLOGY & PF4 ORDERABLES Final Result Performing Organization Address [facility] de Phone Number [facility] [address] [place] [address] * PTT (05/12/2005 11:30 EST) Pathologist [facility] PTT 25 20 - 35 secs [facility] Comment:Therapeutic Heparin range: 70-105 seconds 05/12/2005 11:3 0 EST 05/12/2005 11:32 EST Shanelle Álvarez MD HEMATOLOGY & PF4 ORDERABLES Final Result Performing Organization Address [facility] de Phone Number [facility] [address] [place] [address] * PROTIME (05/12/2005 11:30 EST) Pro Time 13.9 12.0 - 15.0 secs [facility] I.N.R. 1.0 0.9 - 1.1 Ratio [facility] Comment: Moderate Intensity Coumadin INR = 2.0-3.0 Adjustments in anticoagulant therapy dose should be based upon the INR and NOT the Pro Time. 05/12/2005 11:3 0 EST 05/12/2005 11:32 EST Shanelle Álvarez MD HEMATOLOGY & PF4 ORDERABLES Final Result Performing Organization Address [facility] de Phone Number [facility] [address] [place] [address] * LIVER FUNCTION TESTS (05/12/2005 11:30 EST) Albumin 4.8 3.0 - 5.5 g/dl [facility] Total Protein 8.0 6.3 - 8.6 g/dl [facility] Total Alkaline Phosphatase 98 50 - 130 U/L [facility] ALT 33 0 - 45 U/L [facility] AST 29 15 - 46 U/L [facility] Unconjugated Bilirubin 0.3 0.1 - 1.1 mg/dl [facility] Conjugated Bilirubin 0.0 0.0 - 0.3 mg/dl [facility] Bilirubin, Total <0.5 0.0 - 1.4 mg/dl [facility] 05/12/2005 11:3 0 EST 05/12/2005 11:32 EST Shanelle Álvarez MD CHEMISTRY & BLOOD GAS ORDER GHASSAN Final Result Performing Organization Address [facility] Co de Phone Number [facility] [address] [place] [address] * T4 FREE (05/12/2005 11:30 EST) Free T4 1.0 0.8 - 1.8 ng/dl [facility] 05/12/2005 11:3 0 EST 05/12/2005 11:32 EST Shanelle Álvarez MD CHEMISTRY & BLOOD GAS ORDER GHASSAN Final Result Performing Organization Address [facility] de Phone Number [facility] [address] [place] [address] * HEMAGRAM AND DIFFERENTIAL (05/12/2005 11:30 EST) WBC 5.03 4.6 - 11.2 K/cmm [facility] RBC 4.39 4.10 - 5.10 M/cmm [facility] Hemoglobin 13.2 12.0 - 16.0 gm/dl [facility] HCT 38.0 36.0 - 46.0 % [facility] MCV 86 78 - 102 fl [facility] MCH 30.1 pg [facility] MCHC 34.8 gm/dl [facility] PLT 244 156 - 312 K/cmm [facility] RDW-CV 12.4 % [facility] % Neutrophils 50.5 % [facility] % Lymphocytes 37.1 % [facility] % Monocytes 5.8 % [facility] % Eosinophils 6.1 % [facility] % Basophils 0.5 % [facility] ABS Neutrophils 2.54 K/cmm [facility] ABS Lymphs 1.86 K/cmm [facility] ABS Monocytes 0.29 K/cmm [facility] ABS Eosinophils 0.31 K/cmm [facility] ABS Basophils 0.03 K/cmm [facility] Type of Diff: Automated [facility] 05/12/2005 11:3 0 EST 05/12/2005 11:32 EST us Shanelle Álvarez MD PACKAGES & DNA PROBE ORDERA BLES Final Result [facility] [address] [place] [address] * CARDIOLIPIN ANTIBODY (05/12/2005 11:30 EST) IgM Cardiolipin Ab <4.0Unit: MPL(Note) Interpretatio n: Negative (<10.0 MPL) ? Please note change in reference values effective 09/22/2004. ? [facility] IgG Cardiolipin Ab <4.0Unit: GPL(Note) Interpretatio n: Negative (<10.0 GPL) ? Please note change in reference values effective 09/22/2004. ? Test Performed by: ? [facility] Pathology ? [address] , [place] [address] ? Power Regulator: Kim Salazar M.D. ? [facility] 05/12/2005 11:3 0 EST 05/12/2005 11:32 EST us Shanelle Álvarez MD IMMUNOLOGY AND SEROLOGY ORD ERABLES Final Result Performing Organization Address City/[facility]/ZIP Co de Phone Number [facility] [address] [place] [address] * VITAMIN B12 (05/12/2005 11:30 EST) Vitamin B-12 491 250 - 1100 pg/ml [facility] 05/12/2005 11:3 0 EST 05/12/2005 11:32 EST us Shanelle Álvarez MD CHEMISTRY & BLOOD GAS ORDER GHASSAN Final Result Performing Organization Address [facility] Co de Phone Number [facility] [address] [place] [address] * ANTI NUCLEAR ANTIBODY (05/12/2005 11:30 EST) Anti Nuclear Ab <40 0 - 40 Dils [facility] 05/12/2005 11:3 0 EST 05/12/2005 11:32 EST us Shanelle Álvarez MD IMMUNOLOGY AND SEROLOGY ORD ERABLES Final Result Performing Organization Address [facility] Co de Phone Number [facility] [address] [place] [address] * BACTERIAL CULTURE, URINE (05/12/2005 11:16 EST) Specimen Description Urine [facility] Result Less than 10,000 CFU/ml STREPTOCOCCUS , BETA HEMOLYTIC GROUP B (STREPTOCOCCU S AGALACTIAE) 10,000 to 100,000 CFU/ml Mixed gram positive growth [facility] Report Status Final [id number] [facility] 05/12/2005 11:1 6 EST 05/12/2005 14:12 EST us Shanelle Álvarez MD MICROBIOLOGY - GENERAL ORDE RABLES Final Result Performing Organization Address City/[facility] Co de Phone Number [facility] [address] [place] [address] documented in this encounter Visit Diagnoses Not on filedocumented in this encounter
--- OUTSIDE RECORDS SUMMARY | 2024-01-05 20:09 | XMS_ITS | Encounter Summary ---
Author Organization [facility] Address [address] [place] [address] Care Team Providers Care Waste Management Recycling Technician Name Role Phone Alma Delia Mejia MD Primary Care Provider [phone] Reason for Visit * Reason Comments Other Encounter Details Date Type Department Care Team (Late st Contact Info) Description 09/03/2019 Refill [facility] Family Psychiatry [address] [place], [place] [id number] SusanaetFaye MD Other Social History Tobacco Use Types Packs/Day Years Used Date Smoking Tobacco: Never Assessed Comments Unknown Sex and Gender Information Value Date Recorded Sex Assigned at Not on file Legal Sex Female 18:37 EST Gender Identity Female 01/05/2019 9:42 EST Sexual Orientation Not on file documented as of this encounter Miscellaneous Notes * Telephone Encounter - Vicenta Galo RN - 09/04/2019 0837 EDT Prescription done yesterday documented in this encounter Plan of Treatment Not on file documented as of this encounter Visit Diagnoses Not on filedocumented in this encounter Care Teams Waste Management Recycling Technician Relationship Specialty Start Date End Date Alma Delia Mejia MD [address] [place] [address] PCP - General 07/09/10 documented as of this encounter
--- OUTSIDE RECORDS SUMMARY | 2024-01-05 20:09 | XMS_ITS | Encounter Summary ---
Author Organization [facility] Address [address] [place] [address] Care Team Providers Care Ornament Stapler Name Role Phone Alma Delia Mejia MD Primary Care Provider [phone] Reason for Visit * Reason Comments Other Encounter Details Date Type Department Care Team (Late st Contact Info) Description 07/13/2019 Refill [facility] Family Psychiatry [address] [place] [address] Sofia Osorio NP [address] [facility] [address] [place] [address] Other Social History Tobacco Use [...] tablet TAKE 1 TABLET BY MOUTH DAILY 30 Tab 07/14/2019 08/15/2019 citalopram (CELEXA) 40 mg tablet TAKE 1 TABLET BY MOUTH DAILY 30 Tab 07/14/2019 08/15/2019 documented in this encounter Miscellaneous Notes * Telephone Encounter - Vicenta Galo RN - 07/13/2019 7483 EDT Last OV 10/28/19 no future visits scheduled Lamictil 200 mg 1 tab by mouth daily last filled 06/08/19 Citalopram 40 mg 1 tab by mouth daily Last filled 06/08/[address] Zapien Approved and escribed by Thong Rose APRN documented in this encounter Plan of Treatment Not on file documented as of this encounter Visit Diagnoses Not on filedocumented in this encounter Discontinued Medications Medication Sig Discontinue Reason Start Date End Da te citalopram (CELEXA) 40 mg tablet TAKE 1 TABLET BY MOUTH EVERY DAY 06/08/2019 07/14/2019 lamoTRIgine (LAMICTAL) 200 mg tablet TAKE 1 TABLET BY MOUTH EVERY DAY 06/08/2019 07/14/2019 documented as of this encounter Care Teams Ornament Stapler Relationship Specialty Start Date End Date Alma Delia Mejia MD [address] [place] [address] PCP - General 07/09/10 documented as of this encounter
--- OUTSIDE RECORDS SUMMARY | 2024-01-05 20:09 | XMS_ITS | Encounter Summary ---
Author Organization [facility] Address [address] [place] [address] Care Team Providers Care Ice Skating Coach Name Role Phone Alma Delia Mejia MD Primary Care Provider [phone] Casi Rose DIRECTOR HUMAN SERVICES Unavailable [phone] Reason for Visit * Reason Comments Other Encounter Details Date Type Department Care Team (Late st Contact Info) Description 12/10/2019 Refill [facility] Family Psychiatry [address] [place] [address] Faye Zapien MD Other Social [...] encounter Miscellaneous Notes * Telephone Encounter - Sara Campos - 12/12/2019 0952 EDT 12/12/19 LM to c/b and schedule with new provider, Gianna Rose * Telephone Encounter - Rosalba Hernandez RN - 12/10/2019 1253 EDT Citalopram 40mg tablet, take 1 tab daily Last seen by Yana Nothing future scheduled documented in this encounter Plan of Treatment Not on file documented as of this encounter Visit Diagnoses Not on filedocumented in this encounter Care Teams Ice Skating Coach Relationship Specialty Start Date End Date Alma Delia Mejia MD [address] [place] [address] PCP - General 07/09/10 Casi Rose NP [address] [phone] Physician Tax Assessor Mental Health 12/06/19 05/05/20 documented as of this encounter
--- OUTSIDE RECORDS SUMMARY | 2024-01-05 20:09 | XMS_ITS | Encounter Summary ---
Author Organization [facility] Address [address] [place] [address] Care Team Providers Care Women'S Garment Fitter Name Role Phone Alma Delia Mejia MD Primary Care Provider [phone] Encounter Details Date Type Department Care Team (Late st Contact Info) Description 07/29/2017 Historical Results Only [facility] Radiology Results [address] [place], [place] [phone] Subha Ibarra PA-C [address] [facility] [address] [place] [address] Social History Tobacco Use Types [...] on filedocumented in this encounter Care Teams Women'S Garment Fitter Relationship Specialty Start Date End Date Alma Delia Mejia MD [address] [place] [address] PCP - General 07/09/10 documented as of this encounter
--- OUTSIDE RECORDS SUMMARY | 2024-01-05 20:09 | XMS_ITS | Encounter Summary ---
Author Organization [facility] Address [address] [place] [address] Care Team Providers Care Line Driver Name Role Phone Alma Delia Mejia MD Primary Care Provider [phone] Reason for Visit * Reason Onset Date Comments Medications Refill 04/12/2019 refill Citalo pram and Lamotrigine Encounter Details Date Type Department Care Team (Late st Contact Info) Description 04/12/2019 Telephone [facility] Family Psychiatry [address] [place], [place] [phone] Jc Calle MD [address] [place] [phone] Medications Refill (refill Citalopram and Lamotrigine) Social History Tobacco Use Types Packs/Day Years [...] End Date lamoTRIgine (LAMICTAL) 200 mg tablet Take 1 Tab by mouth daily. 30 Tab 1 04/12/2019 06/08/2019 citalopram (CELEXA) 40 mg tablet Take 1 Tab by mouth daily. 30 Tab 1 04/12/2019 06/08/2019 documented in this encounter Miscellaneous Notes * Telephone Encounter - cJ Calle MD - 04/12/2019 0714 EST Electronic prescription sent. * Telephone Encounter - Gisela Pagan - 04/12/2019 0645 EST Faye's patient Refill Citalopram 40 MG and Lamotrigine 200 MG Pharmacy - [facility] documented in this encounter Plan of Treatment Not on file documented as of this encounter Visit Diagnoses Not on filedocumented in this encounter Discontinued Medications Medication Sig Discontinue Reason Start Date End Da te citalopram (CELEXA) 40 mg tablet TAKE 1 TABLET BY MOUTH EVERY DAY Reorder 03/12/2019 04/12/2019 lamoTRIgine (LAMICTAL) 200 mg tablet TAKE 1 TABLET BY MOUTH EVERY DAY Reorder 03/12/2019 04/12/2019 documented as of this encounter Care Teams Line Driver Relationship Specialty Start Date End Date Alma Delia Mejia MD [address] [place] [address] PCP - General 07/09/10 documented as of this encounter
--- OUTSIDE RECORDS SUMMARY | 2024-01-05 20:09 | XMS_ITS | Encounter Summary ---
Author Organization [facility] Address [address] [place] [address] Care Team Providers Care Cloud Security Architect Name Role Phone Alma Delia Mejia MD Primary Care Provider [phone] Encounter Details Date Type Department Care Team (Latest Contact Info) Description 06/24/2017 12:33 EDT - 06/24/2017 23:59 EDT Hospital Encounter [facility] [address] [place] [address] Unknown, Provider, Discharge Disposition: Home or Self [...] Code Departure Means Destination Home or Self Long-Term documented in this encounter Plan of Treatment Not on file documented as of this encounter Visit Diagnoses Not on filedocumented in this encounter Care Teams Cloud Security Architect Relationship Specialty Start Date End Date Alma Delia Mejia MD [address] [place] [address] PCP - General 07/09/10 documented as of this encounter
--- OUTSIDE RECORDS SUMMARY | 2024-01-05 20:09 | XMS_ITS | Encounter Summary ---
Author Organization [facility] Address [address] [place] [address] Care Team Providers Care Medical Data Entry Clerk Name Role Phone Alma Delia Mejia MD Primary Care Provider [phone] Reason for Visit * Reason Comments Dental Pain Encounter Details Date Type Department Care Team (Late st Contact Info) Description 08/24/2020 9:30 EDT [facility] [address] [place] [id number] Rachana Sales NP [address] [facility] [address] [place], [place] [phone] Pain, dental (Primary Dx) Social History Tobacco Use Types [...] Sign Reading Time Taken Comments Blood Pressure 154/89 08/24/2020 0926 EDT Pulse 86 08/24/2020 0926 EDT Temperature 36.7 ??C (98.1 ??F) 08/24/2020 0926 EDT Respiratory Rate - - Oxygen Saturation 100% 08/24/2020 0926 EDT Inhaled Oxygen Concentration - - Weight - - Height - - Body Mass Index - - documented in this encounter Patient Instructions * Patient Instructions* Rachana Sales APRN - 08/24/2020 9:30 EDT Alternate 600mg of ibuprofen every 6 hours with 1000mg of tylenol every 6 hours for pain. May continue orajel. Call dentist tomorrow. documented in this encounter Ordered Prescriptions Prescription Sig Dispense Quantity Refills Last Filled Start Date End Date penicillin v potassium (VEETID) 500 mg tabletIndications: Pain, dental Take 1 Tablet by mouth 2 times daily for 10 days. 20 Tablet 08/24/2020 09/03/2020 documented in this encounter Progress Notes * Sandra Whitfield LPN - 08/24/2020 09 EDT CC/HPI: Covid Screening: In the last 72 hours, has the patient had: New or unusual cough, shortness of breath, new nasal congestion, sore throat, fever, chills, body aches, or new loss of taste or smell without a reasonable alternative diagnosis*? (If yes, assign patient to ARC schedule) no In the past 14 days, has the patient had a confirmed close Covid exposure (<6ft for > 15mins in 24hr period)? no In the past 14 days, has the patient returned from international travel? no Is the patient fully Covid vaccinated? (If close exposure or international travel but fully vaccinated, remains NRC. If close exposure or international travel and unvaccinated, assign to ARC) yes ARC screening (if applicable): Cough? Y/N: Last Covid test: Significant PMH: Smoker: Healthcare worker: *may be determined by RN or in discussion with available provider (HUNTER SKIN DIVER's and CCA's can defer to Charge Nurse to complete triage when appropriate) PCP: Alma Delia Mejia * Rachana Sales APRN - 08/24/2020 1380 EDT Images from the original note were not included. [facility] Chief Complaint(s): Dental Pain HPI: Onset last week with left lower tooth pain. States unable to get into dentist. Pain is worsening. Aggravated by chewing. No change with hot or cold liquids. Has tried orajel. Has not tried tylenol oribuprofen. I have reviewed current problem list and current medications. ROS: Review of Systems Constitutional: Negative. HENT: Negative. Respiratory: Negative. Cardiovascular: Negative. Musculoskeletal: Negative. Skin: Negative. Neurological: Negative. Objective: Examination: Vitals: BP (!) 154/89 Pulse 86 Temp 36.7 ??C (98.1 ??F) (Skin) SpO2 100% There is no height or weighton file to calculate BMI. Physical Exam Vitals and nursing note reviewed. Constitutional: General: She is not in acute distress. Appearance: Normal appearance. She is not toxic-appearing. HENT: Head: Normocephalic. Jaw: No tenderness or swelling. Nose: Nose normal. Mouth/Throat: Mouth: Mucous membranes are moist. Pharynx: Oropharynx is clear. Pulmonary: Effort: Pulmonary effort is normal. Skin: General: Skin is warm and dry. Neurological: Mental Status: She is alert. Assessment & Plan: 1. Pain, dental Referred to dentist. Main concern today is work note as she called out due to pain. - ketOROLAC (TORADOL) injection 30 mg - penicillin v potassium (VEETID) 500 mg tablet; Take 1 Tablet by mouth 2 times daily for 10 days. Dispense: 20 Tablet; Refill: 0 documented in this encounter Plan of Treatment Not on file documented as of this encounter Visit Diagnoses Diagnosis Pain, dental- Primary Unspecified disorder of the teeth and supporting structures documented in this encounter Administered Medications Inactive Administered Medications - up to 3 most recent administrations Medication Order MAR Action Action Date Dose Rate Site ketOROLAC (TORADOL) injection 30 mg 30 mg, intramuscular, NOW X1, 1 dose, On 08/24/20 at 1000, RoutineIndications:Pain, dental Given 08/24/2020 9:49 EDT 30 mg documented in this encounter Historical Medications * This list may reflect changes made after this encounter. QUEtiapine (SEROQUEL) 25 mg tablet 1 tab(s) orally at night as needed oxybutynin (DITROPAN-XL) 10 mg CR tablet Take 1 Tablet by mouth daily. 07/08/2020 Cholecalciferol, Vitamin D3, 25 mcg (1,000 unit) capsule TRI-SPRINTEC, 28, 0.18/0.215/0.25 mg-35 mcg (28) tablet Take 1 Tablet by mouth daily. 07/02/2020 albuterol sulfate 90 mcg/actuation aero powdr breath act w/sensor MEDICAL MARIJUANA minimal effective amount inhaled every 2 hours added in this encounter Care Teams Medical Data Entry Clerk Relationship Specialty Start Date End Date Alma Delia Mejia MD [address] [place] [id number] PCP - General 07/09/10 documented as of this encounter
--- OUTSIDE RECORDS SUMMARY | 2024-01-05 20:09 | XMS_ITS | Encounter Summary ---
Author Organization [facility] Address [address] [place] [address] Care Team Providers Care Claim Analyst Name Role Phone Alma Delia Mejia MD Primary Care Provider [phone] Reason for Visit * Reason Onset Date Comments Medications Refill 09/03/2019 Gabapentin Encounter Details Date Type Department Care Team (Late st Contact Info) Description 09/03/2019 Telephone [facility] Family Psychiatry [address] [place] [address] Faye Zapien MD Medications Refill (Gabapentin) Social History Tobacco Use Types Packs/Day Years Used Date Smoking Tobacco: Never Assessed Comments Unknown Sex and Gender Information Value Date Recorded Sex Assigned at Not on file Legal Sex Female 18:37 EST Gender Identity Female 01/05/2019 9:42 EST Sexual Orientation Not on file documented as of this encounter Miscellaneous Notes * Telephone Encounter - Sandy Ramirez - 09/03/2019 0803 EDT Gabapentin 300 mg- 3 times a day as needed- [place] in [place] She said her script at pharmacy documented in this encounter Plan of Treatment Not on file documented as of this encounter Visit Diagnoses Not on filedocumented in this encounter Care Teams Claim Analyst Relationship Specialty Start Date End Date Alma Delia Mejia MD [address] [place] [address] PCP - General 07/09/10 documented as of this encounter
--- OUTSIDE RECORDS SUMMARY | 2024-01-05 20:09 | XMS_ITS | Encounter Summary ---
Author Organization [facility] Address [address] [place] [address] Care Team Providers Care System Dispatcher Name Role Phone Alma Delia Mejia MD Primary Care Provider [phone] Reason for Visit * Reason Onset Date Comments Appointment Related 09/25/2020 Encounter Details Date Type Department Care Team (Late st Contact Info) Description 09/25/2020 Telephone [facility] Surgical Oncology - [facility] [address] [place], [place] [phone] Alma Delia Mejia MD [address] [place] [phone] Appointment Related Social History Tobacco Use [...] * Telephone Encounter - Tavia Grant - 09/30/2020 0815 EDT err documented in this encounter Plan of Treatment Not on file documented as of this encounter Visit Diagnoses Not on filedocumented in this encounter Care Teams System Dispatcher Relationship Specialty Start Date End Date Alma Delia Mejia MD [address] [place] [place] [phone] PCP - General 07/09/10 documented as of this encounter
--- OUTSIDE RECORDS SUMMARY | 2024-01-05 20:09 | XMS_ITS | Encounter Summary ---
Author Organization [facility] Address [address] [place] [address] Care Team Providers Care Diesel Mechanic Farm Name Role Phone Alma Delia Mejia MD Primary Care Provider [phone] Encounter Details Date Type Department Care Team (Late st Contact Info) Description 10/11/2011 Historical Results Only [facility] - [facility] [place] [address] [place] [phone] Monik Shipman MD [address] [place] [address], [address] [place] [address] Social History Tobacco Use Types [...] Date/Time Associated Diagnosis Comments PAP TEST Routine 10/11/2011 documented in this encounter Results * PAP TEST (10/11/2011) 10/11/2011 10/12/2011 9:3 3 EDT Narrative [facility] - 10/14/2011 11:46 EDT ----- ------- Name: ALMA DELIA ESPINOZA ? : [birth year] ?Age/Sex: 29/F ?Unit#: [id number] ? Loc: AGO ? Status: REG POV ?? Reg Date: 10/11/11 ? Pt.Phone Number: ? ----- ------- Specimen: [id number] ?STATUS: SOUT ?Spec Date:10/11/11 ? Physician Copies: ?Monik Shipman MD ? Tissues: ? Cervical/Endo Pap ?Alma Delia Mejia ? CPT: 07306 ?? Units: ??1 ----- ------- ? CYTOLOGY DIAGNOSIS SPECIMEN ADEQUACY: ?Satisfactory for evaluation. Transformation zone component present. GENERAL CATEGORIZATION: ?Negative for Intraepithelial Lesion or Malignancy DESCRIPTIVE DIAGNOSIS: ? Negative for Intraepithelial Lesion or Malignancy. RECOMMENDATIONS/COMMENTS: ?None. ----- ------- ORDER QUERIES: LMP: 10/04/11- ? N Post ? N ??PREVIOUS ATYPICAL: Y BCP/HRT? Y Rad Rx? N IUD? N ??PAP PLUS HPV? N ??REFLEX TO HR-HPV IF ASCUS ?? REFLEX TO HPV 16/18 IF HPV POS/PAP NEG ?? HPV REGARDLESS?RFLX HPV IF LSIL ?? IF ASCUS DO HPV? Y Signed Zuleika Carbajal CT(ASCP) 10/14/11 By the signature above, the attending physician certifies that he/she has personally conducted a gross and/or microscopic examination of the described specimens and rendered or confirmed the above diagnosis. Test Performed by [facility], [address] [place], [place] [id number] Addiction Nurse: Daisy Ramirez MD PHD ----- ------- us Monik Shipman MD PATHOLOGY ORDERABLES Final Resu lt [facility] documented in this encounter Visit Diagnoses Not on filedocumented in this encounter Care Teams Diesel Mechanic Farm Relationship Specialty Start Date End Date Alma Delia Mejia MD [address] [place] [phone] PCP - General 07/09/10 documented as of this encounter
--- OUTSIDE RECORDS SUMMARY | 2024-01-05 20:09 | XMS_ITS | Encounter Summary ---
Author Organization [facility] Address [address] [place] [address] Care Team Providers Care Screw Machine Tender Name Role Phone Alma Delia Mejia MD Primary Care Provider [phone] Reason for Visit * Reason Comments Other Encounter Details Date Type Department Care Team (Late st Contact Info) Description 09/30/2019 Refill [facility] Family Psychiatry [address] [place], [place] [phone] Faye Zapien MD Other Social History Tobacco [...] End Date gabapentin (NEURONTIN) 300 mg capsule TAKE 1 CAPSULE BY MOUTH THREE TIMES DAILY 90 Cap 10/01/2019 documented in this encounter Miscellaneous Notes * Telephone Encounter - Vicenta Galo RN - 10/01/2019 1043 EDT Last Ov 12/11/18 No future visits scheduled' Gabapentin 300 mg take 1 tab by mouth 3 times daily Last filled 09/03/19 not sure if she is [facility] patient still documented in this encounter Plan of Treatment Not on file documented as of this encounter Visit Diagnoses Not on filedocumented in this encounter Discontinued Medications Medication Sig Discontinue Reason Start Date End Da te gabapentin (NEURONTIN) 300 mg capsule 1 cap(s) orally 3 times a day 09/03/2019 10/01/2019 documented as of this encounter Care Teams Screw Machine Tender Relationship Specialty Start Date End Date Alma Delia Mejia MD [address] [place] [phone] PCP - General 07/09/10 documented as of this encounter
--- OUTSIDE RECORDS SUMMARY | 2024-01-05 20:09 | XMS_ITS | Encounter Summary ---
Author Organization [facility] Address [address] [place] [address] Care Team Providers Care Delivery Route Driver Name Role Phone Alma Delia Mejia MD Primary Care Provider [phone] Reason for Visit * Reason Comments Other Encounter Details Date Type Department Care Team (Late st Contact Info) Description 08/15/2019 Refill [facility] Family Psychiatry [address] [place] [address] Casi Rose, WATCHMAKING TEACHER [address] [facility] [address] [place] [address] Other Social History Tobacco Use [...] 1 TABLET BY MOUTH DAILY 30 Tab 08/15/2019 09/17/2019 lamoTRIgine (LAMICTAL) 200 mg tablet TAKE 1 TABLET BY MOUTH DAILY 30 Tab 08/15/2019 09/17/2019 documented in this encounter Miscellaneous Notes * Telephone Encounter - Sara Campos - 10/03/2019 0820 EDT Pt is to be scheduled for first appt with new providerGianna * Telephone Encounter - Vicenta Galo RN - 08/16/2019 0908 EDT Needs f/u with Dr Zapien * Telephone Encounter - Vicenta Galo RN - 08/15/2019 1137 EDT Last ov 12/11/18 No future visits scheduled lamictil 20o mg 1 tab by mouth daily Citalopram 40 mg 1 tab by mouth daily Last filled 07/13/19 Patient of Faye angel documented in this encounter Plan of Treatment Not on file documented as of this encounter Visit Diagnoses Not on filedocumented in this encounter Discontinued Medications Medication Sig Discontinue Reason Start Date End Da te lamoTRIgine (LAMICTAL) 200 mg tablet TAKE 1 TABLET BY MOUTH DAILY 07/14/2019 08/15/2019 citalopram (CELEXA) 40 mg tablet TAKE 1 TABLET BY MOUTH DAILY 07/14/2019 08/15/2019 documented as of this encounter Care Teams Delivery Route Driver Relationship Specialty Start Date End Date Alma Delia Mejia MD [address] [place] [address] PCP - General 07/09/10 documented as of this encounter
== END 2024-01-05 20:04 | disposition home or self-care (01) ==
LOC: NCHCN 20:03
PROVIDERS: PCP Family Medicine; Visit Provider Family Medicine
DX: R39.9 Unspecified symptoms and signs involving the genitourinary system (principal); R82.89 Other abnormal findings on cytological and histological examination of urine
CPT/HCPCS: 87086

== ENCOUNTER 2024-11-13 17:08 | Outpatient (REF) | payer SELFPAY ==
--- NOTE | 2024-11-13 15:30 | PAPFT_PTH ---
PATIENT: Alma Delia Loomis LOC: [facility]#:[id number] AGE/SX: 34/F ROOM: RE11/13/[address]: Alma Delia Mejia : 1990 BED: DIS: 11/13/2024 SPEC #: [id number] RECD: 11/14/24 12:50 STATUS: HUMZA REJorge #: [id number] LUIS: 11/13/24 15:[address]: Alma Delia Mejia DEPT: PENDING SALE TO [facility] Cytology RECD BY: Marnie Villa Tissues: 1 - CX/ENDOCX FOR PAP SMEARS Procedures: PAP THIN PREP/[facility] Screening HPV DNA PROBE Comments: [id number] (HPV 16 & 18/45)
[2024-11-13 21:43] LABS: HCT 38.2 % (36.0-46.0); HGB 12.4 g/dL (11.2-15.7); MCH 30.1 pg (27.0-33.0); MCHC 32.5 % (32.0-36.0); MCV 93 fL (80-95); MPV 10.8 fL (8.0-11.0); Platelet Count 285 10^3/uL (130-400); RBC 4.12 10^6/uL (3.93-5.22); RDW 12.7 % (11.7-14.6); RDW-SD 43.4 fL; WBC 5.22 10^3/uL (4.4-10.8)
[2024-11-13 22:09] LABS: ALT 69 U/L (14-59); AST 31 U/L (15-37); Albumin 3.9 g/dL (3.4-5.0); Alkaline Phosphatase 80 U/L (46-116); Anion Gap 6.9 mmol/L (3-11); BUN 13 mg/dL (7-18); Bilirubin, Total 0.4 mg/dL (0.2-1.0); CO2 29.1 mmol/L (21.0-32.0); Calcium 9.3 mg/dL (8.5-10.1); Chloride 103 mmol/L (98-107); Cholesterol 194 mg/dL (<200); Estimated GFR 74.88 (mL/min/1.73m2); Glucose 84 mg/dL (74-106); Potassium 3.7 mmol/L (3.5-5.1); Sodium 139 mmol/L (136-145); TSH (W/Ref FT4) 1.64 uIU/mL (0.36-3.74); Total Protein 7.7 g/dL (6.4-8.2); Triglyceride 85 mg/dL (<150)
[2024-11-14 04:57] LABS: Calculated LDL 110 mg/dL (<100); HDL Cholesterol 67 mg/dL (>or=50)
== END 2024-11-13 17:09 | disposition home or self-care (01) ==
LOC: NCHCN 17:08
PROVIDERS: PCP Family Medicine; Visit Provider Family Medicine
DX: Z12.4 Encounter for screening for malignant neoplasm of cervix (principal); Z00.00 Encounter for general adult medical examination without abnormal findings; Z13.0 Encounter for screening for diseases of the blood and blood-forming organs and certain disorders involving the immune mechanism; R63.4 Abnormal weight loss; Z13.220 Encounter for screening for lipoid disorders; Z83.49 Family history of other endocrine, nutritional and metabolic diseases
CPT/HCPCS: 80053; 80061; 85027; 88142; 84443; 87624